=== PATIENT | male | born 1980 | race Caucasian/White ===

== ENCOUNTER 2019-04-30 20:48 | Emergency (ER) | payer OTHER ==
[2019-04-30 20:58] VITALS: RESP 16
--- NOTE | 2019-04-30 21:27 | ED ---
General Adult HPI - General Chief complaint: Neuro Symptoms/Deficit Stated complaint: Neuro issues Time Seen by Provider: 04/30/19 21:01 Source: patient Mode of arrival: ambulatory Limitations: no limitations - History of Present Illness Initial comments: Dictation was produced using [employer] dictation software. please excuse any grammatical, word or spelling errors. Chief Complaint: 38-year-old male past medical history of HIV/AIDS presents with bizarre behavior. History of Present Illness: As a 38-year-old male with past medical history of HIV/AIDS. Patient states he had his last CD4 count several months ago found to be 30. He has been noncompliant with his antiretroviral medications. Patient is also supposed to be on prophylactic antibiotics that he's not been on for the last several weeks. He doesn't have established care with infectious disease doctor in the area. He had established care in [place] however he moved closer to be with family. Patient states that over the last several years he's been casanova ving abnormal behavior. One example he had today which occurred 1 hour prior to arrival was he was scooping roasted potatoes and putting it back into the container instead of his plate. Patient has multiple episodes of these types of abnormal behavior at least once a week for the past several years. He reports today that he is sick and tired of having these symptoms prompted him to come to the emergency department today. Patient denies any pain complaints today. Patient feels like he is asymptomatic at this time. The ROS documented in this emergency department record has been reviewed and confirmed by me. Those systems with pertinent positive or negative responses have been documented in the HPI. All other systems are other negative and/or noncontributory. PHYSICAL EXAM: General Impression: Alert and oriented x3, not in acute distress HEENT: Normocephalic atraumatic, extra-ocular movements intact, pupils equal and reactive to light bilaterally, mucous membranes moist. Cardiovascular: Heart regular rate and rhythm, S1&S2 audible, no murmurs, rubs or gallops Chest: Lungs clear to auscultation bilaterally, no rhonchi, no wheeze, no rales Abdomen: Bowel sounds present, abdomen soft, non-tender, non-distended, no organomegaly Musculoskeletal: Pulses present and equal in all extremities, no peripheral edema Motor: no focal deficits noted Neurological: CN II-XII grossly intact, no focal motor or sensory deficits noted, NIH 0 Skin: Intact with no visualized rashes Psych: Normal affect and mood ED course: 38-year-old male presents with abnormal behavior. He is currently asymptomatic. Patient does not have a strokelike symptoms at bedside. His NIH is 0 and upon arrival are within acceptable limits. Given patient has history of HIV/AIDS with recent very low CD4 count several weeks ago there is concern that patient has been AIDS defining illness. Computed tomography scan of the brain was obtained showing no acute processes. Chest x-ray is unremarkable. Laboratory evaluation shows leukopenia 1.5 with macrocytosis. He does have normal cytopenia with white count 64. Coag panel metabolic panel is unremarkable. At this point it is unclear what is causing patient's abnormal behavior however he is currently asymptomatic at this time. Furthermore, his symptoms are chronic and occur frequently over the last several years. Patient does not have established care here in [place] after moving from [place] 1 week ago. I believe it's reasonable for patient be discharged to have outpatient workup given that there is no acute processes ongoing at this ti wy. She does not have any infectious symptoms to indicate CSF analysis. Discussed patient case with Dr. Brannon who recommends that patient be given Bactrim as daily prophylaxis. He does not recommend starting patient on any antiretroviral dictations at this time until he has further testing done. Patient is understandable agreeable to disposition. Patient is given referral to infectious disease. Given 1 dose of Bactrim here today. He is also given a starter pack for Bactrim to be taken daily as PCP prophylaxis. Return parameters discussed. Patient clear for discharge. - Related Data Home Medications Medication Instructions Recorded Confirmed Acetaminophen/Diphenhydramine 2 tab PO HS PRN 04/30/19 04/30/19 [Tylenol PM 500-25mg] Previous Rx's Medication Instructions Recorded Sulfamethox-Tmp 800-160Mg [Bactrim 1 tab PO DAILY 30 Days #30 tab 04/30/19 DS 800-160 mg] Allergies Allergy/AdvReac Type Severity Reaction Status Date / Time No Known Allergies Allergy Verified 04/30/19 21:15 Review of Systems ROS Statement: Those systems with pertinent positive or pertinent negative responses have been documented in the HPI. ROS Other: All systems not noted in ROS Statement are negative. Past Medical History Additional Past Medical History / Comment(s): aids, History of Any Multi-Drug Resistant Organisms: None Reported Additional Past Surgical History / Comment(s): colostomy and reversile Past Psychological History: No Psychological Hx Reported Smoking Status: Current every day smoker Past Alcohol Use History: Occasional Past Drug Use History: Cocaine, Marijuana General Exam Limitations: no limitations Course Vital Signs 04/30/19 20:53 Temperature 97.9 F Pulse Rate 64 Respiratory 16 Rate Blood Pressure 116/69 O2 Sat by Pulse 98 Oximetry Medical Decision Making - Lab Data Result diagrams: 04/30/19 21:25 04/30/19 21:25 Lab Results 04/30/19 04/30/19 04/30/19 Range/Units 21:25 21:25 21:25 WBC 1.5 L (3.8-10.6) k/uL RBC 3.90 L (4.30-5.90) m/uL Hgb 13.7 (13.0-17.5) gm/dL Hct 40.3 (39.0-53.0) % MCV 103.3 H (80.0-100.0) fL MCH 35.1 H (25.0-35.0) pg MCHC 33.9 (31.0-37.0) g/dL RDW 12.7 (11.5-15.5) % Plt Count 64 L (150-450) k/uL Neutrophils % 44 % Lymphocytes % 37 % Monocytes % 12 % Eosinophils % 1 % Basophils % 2 % Neutrophils # 0.7 L (1.3-7.7) k/uL Lymphocytes # 0.6 L (1.0-4.8) k/uL Monocytes # 0.2 (0-1.0) k/uL Eosinophils # 0.0 (0-0.7) k/uL Basophils # 0.0 (0-0.2) k/uL Manual Slide Review Performed Macrocytosis Slight PT 11.4 (9.0-12.0) sec INR 1.1 (<1.2) APTT 26.7 (22.0-30.0) sec Sodium 140 (137-145) mmol/L Potassium 4.6 (3.5-5.1) mmol/L Chloride 104 (98-107) mmol/L Carbon Dioxide 27 (22-30) mmol/L Anion Gap 9 mmol/L BUN 17 (9-20) mg/dL Creatinine 0.89 (0.66-1.25) mg/dL Est GFR (CKD-EPI)AfAm >90 (>60 ml/min/1.73 sqM) Est GFR (CKD-EPI)NonAf >90 (>60 ml/min/1.73 sqM) Glucose 105 H (74-99) mg/dL Calcium 8.9 (8.4-10.2) mg/dL Magnesium 1.9 (1.6-2.3) mg/dL Total Bilirubin 1.0 (0.2-1.3) mg/dL AST 174 H (17-59) U/L ALT 86 H (21-72) U/L Alkaline Phosphatase 86 (38-126) U/L Total Protein 7.6 (6.3-8.2) g/dL Albumin 3.7 (3.5-5.0) g/dL Disposition Clinical Impression: Bizarre behavior Disposition: HOME SELF-CARE Condition: Good Instructions (If sedation given, give patient instructions): AIDS (DC), HIV Infection (ED) Prescriptions: Sulfamethox-Tmp 800-160Mg [Bactrim DS 800-160 mg] 1 tab PO DAILY 30 Days #30 tab Is patient prescribed a controlled substance at d/c from ED?: No Referrals: Shahzad Brannon MD [STAFF PHYSICIAN] - 1-2 days Álvaro Wang MD [STAFF PHYSICIAN] - 1-2 days Time of Disposition: 23:21
--- NOTE | 2019-04-30 21:50 | CT ---
EXAMINATION TYPE: CT brain wo con DATE OF EXAM: 04/30/2019 COMPARISON: None. HISTORY: Altered mental status. TECHNIQUE: Axial CT images of the head without contrast. Bone windows and sagittal and coronal reform ats were reviewed. CT DLP: 1127.4 mGycm Automated exposure control for dose reduction was used. FINDINGS: No acute intracranial hemorrhage. Grimlado-white differentiation is maintained. No ventriculomegaly. Patent basal cisterns. No extra-axial fluid collections. No depressed or displaced calvarial fracture. Imaged paranasal sinuses and temporal bone structures a re well aerated. IMPRESSION: No acute intracranial process.
[2019-04-30 21:54] LABS: INR 1.1 (<1.2); Partial Thromboplastin Time 26.7 sec (22.0-30.0); Prothrombin Time 11.4 sec (9.0-12.0)
[2019-04-30 22:03] LABS: ALT 86 U/L (21-72); AST 174 U/L (17-59); African American GFR (CKD) >90 (>60 ml/min/1.73 sqM); Albumin 3.7 g/dL (3.5-5.0); Alkaline Phosphatase 86 U/L (38-126); Anion Gap 9 mmol/L; Blood Urea Nitrogen 17 mg/dL (9-20); Calcium 8.9 mg/dL (8.4-10.2); Carbon Dioxide 27 mmol/L (22-30); Chloride 104 mmol/L (98-107); Glucose 105 mg/dL (74-99); Magnesium 1.9 mg/dL (1.6-2.3); Potassium 4.6 mmol/L (3.5-5.1); Sodium 140 mmol/L (137-145); Total Protein 7.6 g/dL (6.3-8.2)
--- NOTE | 2019-04-30 22:04 | XR ---
EXAMINATION TYPE: XR chest 2V DATE OF EXAM: 04/30/2019 COMPARISON: NONE HISTORY: Blurred vision and nausea TECHNIQUE: Frontal and lateral views of the chest are obtained. FINDINGS: Heart and mediastinum are normal. Lungs are clear. Diaphragm is normal. There are chest le ads. Bony thorax appears normal. IMPRESSION: Normal chest
[2019-04-30 22:08] LABS: Basophils % (A) 2 %; Eosinophils % (A) 1 %; HCT 40.3 % (39.0-53.0); HGB 13.7 gm/dL (13.0-17.5); Lymphocytes # (A) 0.6 k/uL (1.0-4.8); Lymphocytes % (A) 37 %; MCH 35.1 pg (25.0-35.0); MCHC 33.9 g/dL (31.0-37.0); MCV 103.3 fL (80.0-100.0); Macrocytosis Slight; Mean Platelet Volume 8.8; Monocytes # (A) 0.2 k/uL (0-1.0); Monocytes % (A) 12 %; Neutrophils # (A) 0.7 k/uL (1.3-7.7); Neutrophils % (A) 44 %; RDW 12.7 % (11.5-15.5); WBC 1.5 k/uL (3.8-10.6)
[2019-04-30 22:32] LABS: Platelet Count 64 k/uL (150-450)
[2019-04-30] MEDS ORDERED: SULFAMETH-TMP DS STARTER PACK 2 TAB BTL PO STA (23:17)
[2019-04-30] MEDS ORDERED: SULFAMETHOX-TMP 800-160MG 1 EACH TAB PO STA (23:17)
[2019-04-30 23:55] VITALS: BP 118/78; PULSE 68; TEMP 98
== END 2019-04-30 23:54 | disposition home or self-care (01) ==
LOC: EC 20:48
DX: R46.89 Other symptoms and signs involving appearance and behavior (principal); D72.819 Decreased white blood cell count, unspecified; D75.89 Other specified diseases of blood and blood-forming organs; Z21 Asymptomatic human immunodeficiency virus [HIV] infection status
CPT/HCPCS: 36415; 70450; 71046; 80053; 83735; 85025; 85610; 85730; 99284

== ENCOUNTER 2019-05-06 17:07 | Emergency (ER) | payer OTHER ==
[2019-05-06] MEDS ORDERED: OXYMETAZOLINE 0.05% NASL SPRAY 1 SPRAY BOTTLE NASAL STA (18:03)
--- NOTE | 2019-05-06 18:19 | ED ---
ENT HPI - General Source: patient, EMS Mode of arrival: EMS Limitations: no limitations <Isabella Grewal - Last Filed: 05/06/19 23:54> <Bryan Alonzo - Last Filed: 05/17/19 09:44> - General Chief complaint: ENT Stated complaint: Nosebleed Time Seen by Provider: 05/06/19 17:54 - History of Present Illness Initial comments: 38-year-old male with history of AIDS with CD4 < 30 off antiviral medications, HTN currently non compliant with his lisinopril recent right sided facial fracture > 6 week prior after fall presenting to the ER for cc of right nare nose bleed x 4 days, no history of trauma. Patient states that he has had a nosebleed on and off for the past 4 days. Patient states it occurred while bending over looking in the fridge for food approximate 4 days ago. Patient states is been on and off. Patient states this current episode of bleeding of the right knee are has been ongoing for approximately 3-4 hours. Patient states he has attempted to hold pressure but this was no working so he called EMS for transportation to hospital for evaluation. Upon arrival patient BP elevated. Remaining VS stable. Denies other complaints. (Isabella Grewal) - Related Data Home Medications Medication Instructions Recorded Confirmed Acetaminophen/Diphenhydramine 2 tab PO HS PRN 04/30/19 04/30/19 [Tylenol PM 500-25mg] Previous Rx's Medication Instructions Recorded Sulfamethox-Tmp 800-160Mg [Bactrim 1 tab PO DAILY 30 Days #30 tab 04/30/19 DS 800-160 mg] Oxymetazoline 0.05% Nasl [place] 2 spray EA NOSTRIL BID PRN 7 Days 05/06/19 [Afrin 0.05% Nasal [place]] #1 bottle Allergies Allergy/AdvReac Type Severity Reaction Status Date / Time No Known Allergies Allergy Verified 04/30/19 21:15 Review of Systems ROS Other: All systems not noted in ROS Statement are negative. <Isabella Grewal - Last Filed: 05/06/19 23:54> ROS Other: All systems not noted in ROS Statement are negative. <Bryan Alonzo - Last Filed: 05/17/19 09:44> ROS Statement: Those systems with pertinent positive or pertinent negative responses have been documented in the HPI. Past Medical History Additional Past Medical History / Comment(s): aids, History of Any Multi-Drug Resistant Organisms: None Reported Additional Past Surgical History / Comment(s): colostomy and reversile Past Psychological History: No Psychological Hx Reported Smoking Status: Current every day smoker Past Alcohol Use History: Occasional Past Drug Use History: Cocaine, Marijuana <Isabella Grewal - Last Filed: 05/06/19 23:54> General Exam Limitations: no limitations <Isabella Grewal - Last Filed: 05/06/19 23:54> - General Exam Comments Initial Comments: General: The patient is awake and alert, in no distress, and does not appear acutely ill. Eye: +3 mm pupils are equal, round and reactive to light, extra-ocular movements are intact. No nystagmus. There is normal conjunctiva bilaterally. No signs of icterus. Ears, nose, mouth and throat: There are moist mucous membranes and no oral lesions. Bleeding from right nare-mild. There is blood in the oropharynx. Neck: The neck is supple, there is no tenderness or JVD. Cardiovascular: There is a regular rate and rhythm. No murmur, rub or gallop is appreciated. Respiratory: Lungs are clear to auscultation, respirations are non-labored, breath sounds are equal. No wheezes, stridor, rales, or rhonchi. Gastrointestinal: Soft, non-distended, non-tender abdomen without masses or organomegaly noted. There is no rebound or guarding present. No CVA tenderness. Bowel sounds are unremarkable.] Musculoskeletal: Normal ROM, no tenderness. Strength 5/5. Sensation intact. Radial pulses equal bilaterally 2+. Neurological: A&O x 3. CN II-XII intact, There are no obvious motor or sensory deficits. Coordination appears grossly intact. Speech is normal. Skin: Skin is warm and dry and no rashes or lesions are noted. Psychiatric: Cooperative, appropriate mood & affect, normal judgment. (Isabella Grewal) Course Vital Signs 05/06/19 05/06/19 05/06/19 17:11 20:00 22:18 Temperature 98.0 F 98.5 F Pulse Rate 76 67 70 Respiratory 18 16 15 Rate Blood Pressure 144/105 143/105 133/98 O2 Sat by Pulse 97 98 98 Oximetry 05/06/19 05/07/19 23:25 00:22 Temperature 97.7 F Pulse Rate 73 75 Respiratory 14 18 Rate Blood Pressure 125/89 133/85 O2 Sat by Pulse 97 98 Oximetry Medical Decision Making - Lab Data Result diagrams: 05/06/19 18:15 05/06/19 18:15 <Isabella Grewal - Last Filed: 05/06/19 23:54> - Lab Data Result diagrams: 05/06/19 18:15 05/06/19 18:15 <Bryan Alonzo - Last Filed: 05/17/19 09:44> - Medical Decision Making 38-year-old male presented emergency department for chief complaint of nosebleeds 4 days. Patient's nosebleed controlled with direct pressure in the ER. There is no evidence of bleeding in the posterior oropharynx after cessation. Patient's hemoglobin 12.7 stable. 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 Noncompliant with medications. Patient has no focal neurological deficits. Patient's family concern of previous visit on the with TIA symptoms they feel that patient given his past medical history and comorbidities is at risk for a stroke. Patient is found to be hypertensive with headache today during visit (not initial complaint) CT without contrast negative. Patient has no focal neurological complaints today. Family requesting transfer as there is no neurology available in house today. At this time after discussing case with him provider patient will be transferred for neurological evaluation at [facility]. Dr. Ma accepted the transfer via personal vehicle. Patient was given once dose of hydralazine in the ER. Patient discharged appearing well. Address provided and family states they will drive patient directly to the ER. (Isabella Grewal) I saw this patient in conjunction with the physician accountant assistant. I performed independent history and physical exam. Agree with case management. (Bryan Alonzo) - Lab Data Lab Results 05/06/19 05/06/19 05/06/19 Range/Units 18:15 18:15 18:15 WBC 2.2 L (3.8-10.6) k/uL RBC 3.61 L (4.30-5.90) m/uL Hgb 12.7 L (13.0-17.5) gm/dL Hct 36.8 L (39.0-53.0) % MCV 101.9 H (80.0-100.0) fL MCH 35.0 (25.0-35.0) pg MCHC 34.4 (31.0-37.0) g/dL RDW 12.7 (11.5-15.5) % Plt Count 45 L (150-450) k/uL Neutrophils % (Manual) 53 % Lymphocytes % (Manual) 18 % Monocytes % (Manual) 28 % Eosinophils % (Manual) 1 % Neutrophils # (Manual) 1.17 L (1.3-7.7) k/uL Lymphocytes # (Manual) 0.40 L (1.0-4.8) k/uL Monocytes # (Manual) 0.62 (0-1.0) k/uL Eosinophils # (Manual) 0.02 (0-0.7) k/uL Nucleated RBCs 0 (0-0) /100 WBC Manual Slide Review Performed RBC Morphology Normal PT 10.9 (9.0-12.0) sec INR 1.0 (<1.2) APTT 26.3 (22.0-30.0) sec Sodium 139 (137-145) mmol/L Potassium 4.6 (3.5-5.1) mmol/L Chloride 105 (98-107) mmol/L Carbon Dioxide 24 (22-30) mmol/L Anion Gap 10 mmol/L BUN 19 (9-20) mg/dL Creatinine 0.83 (0.66-1.25) mg/dL Est GFR (CKD-EPI)AfAm >90 (>60 ml/min/1.73 sqM) Est GFR (CKD-EPI)NonAf >90 (>60 ml/min/1.73 sqM) Glucose 98 (74-99) mg/dL Calcium 8.8 (8.4-10.2) mg/dL Total Bilirubin 0.9 (0.2-1.3) mg/dL AST 121 H (17-59) U/L ALT 84 H (21-72) U/L Alkaline Phosphatase 77 (38-126) U/L Total Protein 7.5 (6.3-8.2) g/dL Albumin 3.8 (3.5-5.0) g/dL Disposition Is patient prescribed a controlled substance at d/c from ED?: No Time of Disposition: 22:27 - Out of Hospital Transfer - Req. Specs Out of Hospital Transfer - Requested Specifics: Other Emergency Center ([facility] Rey) <Isabella Grewal - Last Filed: 05/06/19 23:54> <Bryan Alonzo - Last Filed: 05/17/19 09:44> Clinical Impression: Elevated blood pressure reading, Anterior epistaxis, Recurrent epistaxis, Chronic leukopenia, Thrombocytopenia associated with AIDS Disposition: OTHER INSTITUTION NOT DEFINED Condition: Stable Additional Instructions: Please go directly to the emergency department as discussed, [facility]. If patient develops new symptoms or other new concerns please don't bear out to the nearest emergency department. Prescriptions: Oxymetazoline 0.05% Nasl [place] [Afrin 0.05% Nasal [place]] 2 spray EA NOSTRIL BID PRN 7 Days #1 bottle PRN Reason: Bleeding Referrals: None,Stated [Primary Care Provider] - 1-2 days Shahzad Brannon MD [STAFF PHYSICIAN] - 1-2 days Srinivas Denise MD [STAFF PHYSICIAN] - 1-2 days
[2019-05-06 18:33] LABS: HCT 36.8 % (39.0-53.0); HGB 12.7 gm/dL (13.0-17.5); MCHC 34.4 g/dL (31.0-37.0); MCV 101.9 fL (80.0-100.0); Mean Platelet Volume 11.1; RBC 3.61 m/uL (4.30-5.90); RDW 12.7 % (11.5-15.5); WBC 2.2 k/uL (3.8-10.6)
[2019-05-06 18:36] LABS: Platelet Count 45 k/uL (150-450)
[2019-05-06 18:38] LABS: ALT 84 U/L (21-72); AST 121 U/L (17-59); African American GFR (CKD) >90 (>60 ml/min/1.73 sqM); Albumin 3.8 g/dL (3.5-5.0); Alkaline Phosphatase 77 U/L (38-126); Anion Gap 10 mmol/L; Blood Urea Nitrogen 19 mg/dL (9-20); Calcium 8.8 mg/dL (8.4-10.2); Carbon Dioxide 24 mmol/L (22-30); Chloride 105 mmol/L (98-107); Glucose 98 mg/dL (74-99); Non-African American GFR(CKD) >90 (>60 ml/min/1.73 sqM); Potassium 4.6 mmol/L (3.5-5.1); Sodium 139 mmol/L (137-145); Total Bilirubin 0.9 mg/dL (0.2-1.3); Total Protein 7.5 g/dL (6.3-8.2)
[2019-05-06 18:52] LABS: Partial Thromboplastin Time 26.3 sec (22.0-30.0); Prothrombin Time 10.9 sec (9.0-12.0)
[2019-05-06 19:13] LABS: Eosinophils # (M) 0.02 k/uL (0-0.7); Monocytes # (M) 0.62 k/uL (0-1.0); Neutrophils # (M) 1.17 k/uL (1.3-7.7); Neutrophils % (M) 53 %; Nucleated Red Blood Cells 0 /100 WBC (0-0); Total Cells Counted 100
[2019-05-06] MEDS ORDERED: BENZOCAINE SPRAY 1 CAN MUCOUS MEM STA (20:00)
--- NOTE | 2019-05-06 21:38 | CT ---
EXAMINATION TYPE: CT brain wo con DATE OF EXAM: 05/06/2019 COMPARISON: 04/30/2019 HISTORY: headache and bleeding from nose X [address] DLP: 1151.4 mGycm. Automated Exposure Control for Dose Reduction was Utilized. TECHNIQUE: CT scan of the head is performed without contrast. FINDINGS: Ventricles have normal size. There is no mass effect nor midline shift. There is no sign of intracranial hemorrhage. Calvarium is intact. IMPRESSION: Mild atrophy. No acute intracranial abnormality. No change.
[2019-05-06] MEDS ORDERED: MORPHINE SULFATE 4 MG/ML SYRINGE IVP STA (21:39)
[2019-05-06] MEDS ORDERED: hydrALAZINE HCL 20 MG/ML 1 ML VIAL IVP STA (22:04)
[2019-05-07 00:24] VITALS: BP 133/85; PULSE 75; RESP 18; TEMP 97.7
== END 2019-05-07 00:15 | disposition other institution (70) ==
LOC: EC 17:07
DX: R04.0 Epistaxis (principal); D72.819 Decreased white blood cell count, unspecified; B20 Human immunodeficiency virus [HIV] disease; R03.0 Elevated blood-pressure reading, without diagnosis of hypertension; R51 Headache; Z91.14 Patient's other noncompliance with medication regimen; F17.200 Nicotine dependence, unspecified, uncomplicated
CPT/HCPCS: 36415; 80053; 85025; 85610; 85730; 70450; 99285; 96374; 96375; J2270; J0360

== ENCOUNTER → 2020-04-05 | Outpatient (CLI) | payer OTHER ==
[2020-04-05 14:41] LABS: Basophils % (A) 0 %; Eosinophils # (A) 0.1 k/uL (0-0.7); Eosinophils % (A) 2 %; HCT 48.6 % (39.0-53.0); HGB 16.1 gm/dL (13.0-17.5); Lymphocytes # (A) 1.1 k/uL (1.0-4.8); Lymphocytes % (A) 28 %; MCH 32.4 pg (25.0-35.0); MCHC 33.2 g/dL (31.0-37.0); MCV 97.6 fL (80.0-100.0); Mean Platelet Volume 8.6; Monocytes # (A) 0.4 k/uL (0-1.0); Monocytes % (A) 9 %; Neutrophils # (A) 2.3 k/uL (1.3-7.7); Neutrophils % (A) 57 %; Platelet Count 130 k/uL (150-450); RBC 4.98 m/uL (4.30-5.90); RDW 12.1 % (11.5-15.5)
[2020-04-05 20:36] LABS: African American GFR (CKD) 96.1 (60.0-200.0); Anion Gap 3.7 mmol/L (4.00-12.00); BUN/Creat Ratio 15.45 Ratio (12.00-20.00); Calcium 9.3 mg/dL (8.7-10.3); Carbon Dioxide 28.3 mmol/L (21.6-31.8); Non-African American GFR(CKD) 82.9 (60.0-200.0); Potassium 4.2 mmol/L (3.5-5.5)
[2020-04-06 12:48] LABS: T4/T8 Ratio (CD4:CD8) 0.2 (1.0-3.7)
[2020-04-06 16:39] LABS: HIV-1 RNA DETECTED (Not detected)
== END | disposition home or self-care (01) ==
LOC: LABWHC1 14:04
PROVIDERS: ATTEND Internal Medicine Infectious Disease
DX: B20 Human immunodeficiency virus [HIV] disease (principal)
CPT/HCPCS: 36415; 80048; 85025; 86360; 87536

== ENCOUNTER 2020-04-08 13:07 | Emergency (ER) | payer OTHER ==
[2020-04-08 13:13] VITALS: RESP 18; TEMP 98.1
[2020-04-08 13:52] VITALS: BP 171/112; PULSE 45
[2020-04-08] MEDS ORDERED: lisinopriL 10 MG TAB PO STA (13:56)
--- NOTE | 2020-04-08 14:05 | ED ---
General Adult HPI - General Chief complaint: ENT Stated complaint: nose bleed Time Seen by Provider: 04/08/20 13:30 Source: patient, family, RN notes reviewed Mode of arrival: ambulatory Limitations: no limitations - History of Present Illness Initial comments: Patient is a pleasant 39-year-old male presenting to the emergency department with complaints of bleeding. Patient states bleeding is coming from deep inside somewhere, rarely comes to nose. Patient states he does swallow frequently. Patient states sometimes he spits out clots of blood. Patient questions if this could be coming from his sinuses. Patient does complain of sinus congestion. Patient is on possibly Keflex for recent stye. - Related Data Home Medications Medication Instructions Recorded Confirmed Acetaminophen/Diphenhydramine 2 tab PO HS PRN 04/30/19 04/30/19 [Tylenol PM 500-25mg] Previous Rx's Medication Instructions Recorded Sulfamethox-Tmp 800-160Mg [Bactrim 1 tab PO DAILY 30 Days #30 tab 04/30/19 DS 800-160 mg] Oxymetazoline 0.05% Nasl [place] 2 spray EA NOSTRIL BID PRN 7 Days 05/06/19 [Afrin 0.05% Nasal [place]] #1 bottle Amoxic-Pot Clav 875-125Mg 1 tab PO BID #20 tab 04/08/20 [Augmentin 875-125] Fluticasone Nasal [place] [Flonase 1 spray EA NOSTRIL DAILY #1 bottle 04/08/20 Nasal [place]] Allergies Allergy/AdvReac Type Severity Reaction Status Date / Time No Known Allergies Allergy Verified 04/08/20 13:12 Review of Systems ROS Statement: Those systems with pertinent positive or pertinent negative responses have been documented in the HPI. ROS Other: All systems not noted in ROS Statement are negative. Constitutional: Denies: fever Eyes: Denies: eye pain ENT: Reports: as per HPI Respiratory: Denies: cough Cardiovascular: Denies: chest pain Endocrine: Denies: fatigue Gastrointestinal: Denies: abdominal pain Genitourinary: Denies: dysuria Musculoskeletal: Denies: back pain Skin: Denies: rash Neurological: Denies: weakness Past Medical History Past Medical History: Hypertension Additional Past Medical History / Comment(s): HIV History of Any Multi-Drug Resistant Organisms: None Reported Additional Past Surgical History / Comment(s): colostomy and reversile, Past Psychological History: Anxiety Smoking Status: Former smoker Past Alcohol Use History: Occasional Past Drug Use History: Cocaine, Marijuana General Exam Limitations: no limitations General appearance: alert, in no apparent distress Head exam: Present: normocephalic Eye exam: Present: normal appearance, PERRL, EOMI ENT exam: Present: normal oropharynx, other (Nasal cavity without any active or dried blood.) Expanded Mouth exam: Present: normal external inspection Throat exam: normal inspection Neck exam: Present: normal inspection Respiratory exam: Present: normal lung sounds bilaterally Cardiovascular Exam: Present: bradycardia GI/Abdominal exam: Present: soft. Absent: tenderness Extremities exam: Present: normal inspection Neurological exam: Present: alert, CN II-XII intact Psychiatric exam: Present: normal affect, normal mood Skin exam: Present: normal color Course Vital Signs 04/08/20 04/08/20 13:08 13:44 Temperature 98.1 F Pulse Rate 43 L 45 L Respiratory 18 18 Rate Blood Pressure 181/103 171/112 O2 Sat by Pulse 99 98 Oximetry Medical Decision Making - Medical Decision Making Patient states he does on lisinopril 5 mg. Patient is not familiar with his blood pressure normally runs. Patient will be provided neck should dose. Patient does not have a primary care physician and is advised of need to follow- up with primary care physician. Patient also advised of need to follow-up with ENT physician. Numbers will be provided. Patient will be provided additional dose of lisinopril here. Patient is advised that possible scope to evaluate si nuses and posterior nasal cavity. Disposition Clinical Impression: Sinusitis, Hypertension Disposition: HOME SELF-CARE Condition: Stable Instructions (If sedation given, give patient instructions): Sinusitis (ED), Hypertension (ED) Additional Instructions: Please follow-up with primary care physician and ENT physician this week. Return for increased bleeding, weakness or shortness of breath or lightheadedness, worsening or change in symptoms or other concerns. New antibiotic will be provided, discontinue all antibiotic. Please follow-up also with blood pressure, you may need change with medications for this. Prescriptions were sent to [facility]'s pharmacy. Prescriptions: Amoxic-Pot Clav 875-125Mg [Augmentin 875-125] 1 tab PO BID #20 tab Fluticasone Nasal [place] [Flonase Nasal [place]] 1 spray EA NOSTRIL DAILY #1 bottle Is patient prescribed a controlled substance at d/c from ED?: No Referrals: Srinivas Denise MD [STAFF PHYSICIAN] - 1-2 days Chang Amor MD [REFERRING] - 1-2 days Javed Hung MD [STAFF PHYSICIAN] - 1-2 days Time of Disposition: 14:03
== END 2020-04-08 14:16 | disposition home or self-care (01) ==
LOC: EC 13:07
DX: J32.9 Chronic sinusitis, unspecified (principal); R04.0 Epistaxis; I10 Essential (primary) hypertension; R00.1 Bradycardia, unspecified; Z87.891 Personal history of nicotine dependence
CPT/HCPCS: 99283

== ENCOUNTER 2020-05-28 03:20 | Observation (INO) | payer OTHER ==
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
[2020-05-28 04:34] LABS: HCT 50.7 % (39.0-53.0); HGB 17.6 gm/dL (13.0-17.5); MCH 34.3 pg (25.0-35.0); MCHC 34.8 g/dL (31.0-37.0); MCV 98.7 fL (80.0-100.0); Platelet Count 151 k/uL (150-450); RBC 5.13 m/uL (4.30-5.90); RDW 12.9 % (11.5-15.5); WBC 4.7 k/uL (3.8-10.6)
[2020-05-28 04:43] LABS: Amphetamine Screen,Urine Not Detected (NotDetected); Barbiturate Screen,Urine Not Detected (NotDetected); Benzodiazepines Screen,Urine Not Detected (NotDetected); Cocaine Screen,Urine Not Detected (NotDetected); Methadone Screen, Urine Not Detected (NotDetected); Opiate Screen,Urine Not Detected (NotDetected); Oxycodone Screen, Urine Not Detected (NotDetected); Phencyclidine Screen,Urine Not Detected (NotDetected); Tricyclic Antidepressant,Urine Not Detected (NotDetected); Urn Cannabinoid Scrn Detected (NotDetected)
[2020-05-28 04:52] LABS: ALT 25 U/L (4-49); AST 38 U/L (17-59); Acetaminophen <10.0 ug/mL; African American GFR (CKD) >90 (>60 ml/min/1.73 sqM); Albumin 4.6 g/dL (3.5-5.0); Alkaline Phosphatase 85 U/L (38-126); Anion Gap 10 mmol/L; Blood Urea Nitrogen 15 mg/dL (9-20); Calcium 8.9 mg/dL (8.4-10.2); Carbon Dioxide 28 mmol/L (22-30); Chloride 112 mmol/L (98-107); Glucose 99 mg/dL (74-99); Non-African American GFR(CKD) >90 (>60 ml/min/1.73 sqM); Salicylate <1.0 mg/dL; Sodium 150 mmol/L (137-145); Total Bilirubin 0.4 mg/dL (0.2-1.3)
[2020-05-28 05:21] LABS: Potassium 3.9 mmol/L (3.5-5.1)
[2020-05-28 05:27] LABS: Alcohol 338 mg/dL
[2020-05-28 05:32] LABS: Basophils # (M) 0.05 k/uL (0-0.2); Eosinophils # (M) 0.09 k/uL (0-0.7); Lymphocytes # (M) 1.83 k/uL (1.0-4.8); Monocytes # (M) 0.33 k/uL (0-1.0); Neutrophils % (M) 51 %; Nucleated Red Blood Cells 0 /100 WBC (0-0); Total Cells Counted 100
[2020-05-28] MEDS ORDERED: ALPRAZolam 0.25 MG TAB PO PRN (05:39)
[2020-05-28] MEDS ORDERED: NALOXONE 0.4 MG/ML 1 ML VIAL IV PRN (05:39)
[2020-05-28] MEDS ORDERED: ONDANSETRON 4 MG/2 ML VIAL IVP PRN (05:39)
[2020-05-28 07:04] VITALS: TEMP 97.3
[2020-05-28] MEDS ORDERED: SODIUM CHLORIDE 0.45% 1,000 ML IV SCH (11:00)
--- NOTE | 2020-05-28 15:02 | P.HPIM ---
History of Present Illness 39-year-old male came in for second evaluation was admitted to my service because of all call intoxication. Although patient is a sober enough to go to psychiatric floor now. Patient today doesn't drink alcohol on regular bas is the patient was at a [employer] yesterday and did drink out of control. Apparently patient did complain of some suicidal ideation to the ER staff yesterday because of which psychiatry was consulted. Patient denied any suicidal ideation to me patient was unsure whether he did say he wants to commit suicide yesterday as he was too drunk. Although he admits to depression. Patient does have history of HIV at The CD4 count available although patient is on Bactrim and antiretroviral therapy. Patient does use marijuana occasionally came in with alcohol levels of around 300 Review of Systems REVIEW OF SYSTEMS: CONSTITUTIONAL: No fever, no malaise, no fatigue. HEENT: No recent visual problems or hearing problems. Denied any sore throat. CARDIOVASCULAR: No chest pain, orthopnea, PND, no palpitations, no syncope. PULMONARY: No shortness of breath, no cough, no hemoptysis. GASTROINTESTINAL: No diarrhea, no nausea, no vomiting, no abdominal pain. NEUROLOGICAL: No headaches, no weakness, no numbness. HEMATOLOGICAL: Denies any bleeding or petechiae. GENITOURINARY: Denies any burning micturition, frequency, or urgency. MUSCULOSKELETAL/RHEUMATOLOGICAL: Denies any joint pain, swelling, or any muscle pain. ENDOCRINE: Denies any polyuria or polydipsia. The rest of the 14-point review of systems is negative. Past Medical History Past Medical History: Hypertension Additional Past Medical History / Comment(s): HIV History of Any Multi-Drug Resistant Organisms: None Reported Additional Past Surgical History / Comment(s): colostomy and reversal-pt did not want to discuss details. Past Anesthesia/Blood Transfusion Reactions: No Reported Reaction Smoking Status: Current every day smoker - Past Family History Father Family Medical History: Cancer Additional Family Medical History / Comment(s): Father of stomach cancer. Mother Family Medical History: No Reported History Additional Family Medical History / Comment(s): Mother is healthy Medications and Allergies Home Medications Medication Instructions Recorded Confirmed Type Bictegrav/Emtricit/Tenofov Ala 1 tab PO HS 05/28/20 05/28/20 History [Biktarvy 50-200-25 mg Tablet] Sulfamethox-Tmp 800-160Mg [Bactrim 1 tab PO HS 05/28/20 05/28/20 History DS 800-160 mg] Allergies Allergy/AdvReac Type Severity Reaction Status Date / Time No Known Allergies Allergy Verified 05/28/20 13:44 Physical Exam Vitals: Vital Signs Temp Pulse Resp BP Pulse Ox 05/28/20 13:00 16 05/28/20 12:00 16 05/28/20 07:02 97.3 F L 70 16 127/77 96 05/28/20 03:35 98.0 F 95 18 161/118 99 Intake and Output 05/27/20 05/28/20 05/28/20 22:59 06:59 14:59 Other: Weight 79.379 kg 79.379 kg PHYSICAL EXAMINATION: GENERAL: The patient is drowsy and oriented x3, not in any acute distress. Well developed, well nourished. HEENT: Pupils are round and equally reacting to light. EOMI. No scleral icterus. No conjunctival pallor. Normocephalic, atraumatic. No pharyngeal erythema. No thyromegaly. CARDIOVASCULAR: S1 and S2 present. No murmurs, rubs, or gallops. PULMONARY: Chest is clear to auscultation, no wheezing or crackles. ABDOMEN: Soft, nontender, nondistended, normoactive bowel sounds. No palpable organomegaly. MUSCULOSKELETAL: No joint swelling or deformity. EXTREMITIES: No cyanosis, clubbing, or pedal edema. NEUROLOGICAL: Gross neurological examination did not reveal any focal deficits. SKIN: No rashes. Results CBC & Chem 7: 05/28/20 04:17 05/28/20 04:17 Labs: Abnormal Lab Results - Last 24 Hours (Table) 05/28/20 05/28/20 05/28/20 Range/Units 04:17 04:17 04:17 Hgb 17.6 H (13.0-17.5) gm/dL Sodium 150 H (137-145) mmol/L Chloride 112 H (98-107) mmol/L U Marijuana (THC) Screen Detected H (NotDetected) Serum Alcohol 338 H* mg/dL Thrombosis Risk Factor Assmnt - Choose All That Apply Any of the Below Risk Factors Present?: Yes Each Factor Represents 1 point: Age 41-60 years Other Risk Factors: No Other congenital or acquired thrombophilia - If yes, enter type in comment: No Thrombosis Risk Factor Assessment Total Risk Factor Score: 1 Thrombosis Risk Factor Assessment Level: Low Risk Assessment and Plan Plan: -Alcohol intoxication: Patient will be started on half-normal saline because of hyponatremia. Patient will be evaluated by psychiatry depending on their assessment patient will be the discharge home or to psychiatric floor. -HIV: CD4 count is unknown patient will follow-up with his ID physician. Jazzy winter will be continued on his antiretroviral medication and Bactrim -Marijuana use and nicotine use: Counseling was provided -Depression: Evaluation by psychiatry Patient will be discharged from medical perspective
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
[2020-05-28] MEDS ORDERED: IBUPROFEN 600 MG TAB PO STA (16:36)
--- NOTE | 2020-05-28 21:25 | ED ---
Medical Decision Making - Medical Decision Making The patient was evaluated by the EPS service at this time is on aerosol himself or anyone else he will be discharged with outpatient follow-up - Lab Data Result diagrams: 05/28/20 04:17 05/28/20 04:17 Lab Results 05/28/20 05/28/20 05/28/20 Range/Units 04:17 04:17 04:17 WBC 4.7 (3.8-10.6) k/uL RBC 5.13 (4.30-5.90) m/uL Hgb 17.6 H (13.0-17.5) gm/dL Hct 50.7 (39.0-53.0) % MCV 98.7 (80.0-100.0) fL MCH 34.3 (25.0-35.0) pg MCHC 34.8 (31.0-37.0) g/dL RDW 12.9 (11.5-15.5) % Plt Count 151 (150-450) k/uL Neutrophils % (Manual) 51 % Lymphocytes % (Manual) 39 % Monocytes % (Manual) 7 % Eosinophils % (Manual) 2 % Basophils % (Manual) 1 % Neutrophils # (Manual) 2.40 (1.3-7.7) k/uL Lymphocytes # (Manual) 1.83 (1.0-4.8) k/uL Monocytes # (Manual) 0.33 (0-1.0) k/uL Eosinophils # (Manual) 0.09 (0-0.7) k/uL Basophils # (Manual) 0.05 (0-0.2) k/uL Nucleated RBCs 0 (0-0) /100 WBC Manual Slide Review Performed Sodium 150 H (137-145) mmol/L Potassium 3.9 (3.5-5.1) mmol/L Chloride 112 H (98-107) mmol/L Carbon Dioxide 28 (22-30) mmol/L Anion Gap 10 mmol/L BUN 15 (9-20) mg/dL Creatinine 0.99 (0.66-1.25) mg/dL Est GFR (CKD-EPI)AfAm >90 (>60 ml/min/1.73 sqM) Est GFR (CKD-EPI)NonAf >90 (>60 ml/min/1.73 sqM) Glucose 99 (74-99) mg/dL Calcium 8.9 (8.4-10.2) mg/dL Total Bilirubin 0.4 (0.2-1.3) mg/dL AST 38 (17-59) U/L ALT 25 (4-49) U/L Alkaline Phosphatase 85 (38-126) U/L Total Protein 8.0 (6.3-8.2) g/dL Albumin 4.6 (3.5-5.0) g/dL Salicylates <1.0 mg/dL Urine Opiates Screen Not Detected (NotDetected) Ur Oxycodone Screen Not Detected (NotDetected) Urine Methadone Screen Not Detected (NotDetected) Ur Propoxyphene Screen Not Detected (NotDetected) Acetaminophen <10.0 ug/mL Ur Barbiturates Screen Not Detected (NotDetected) U Tricyclic Antidepress Not Detected (NotDetected) Ur Phencyclidine Scrn Not Detected (NotDetected) Ur Amphetamines Screen Not Detected (NotDetected) U Methamphetamines Scrn Not Detected (NotDetected) U Benzodiazepines Scrn Not Detected (NotDetected) Urine Cocaine Screen Not Detected (NotDetected) U Marijuana (THC) Screen Detected H (NotDetected) Serum Alcohol 338 H* mg/dL Disposition Clinical Impression: Alcohol intoxication, Suicidal behavior, HIV (human immunodeficiency virus infection), Adjustment reaction of adult life Disposition: ADMITTED IP TO THIS HOSP Condition: Good Is patient prescribed a controlled substance at d/c from ED?: No
[2020-05-28 21:35] VITALS: BP 196/94; PULSE 50; RESP 18
== END 2020-05-28 21:39 | disposition home or self-care (01) ==
LOC: EC 03:20 → 6NMEDSUR 05:41
PROVIDERS: ADMIT Internal Medicine; ATTEND Internal Medicine
DX: F10.129 Alcohol abuse with intoxication, unspecified (principal); E87.0 Hyperosmolality and hypernatremia; F32.9 Major depressive disorder, single episode, unspecified; F43.20 Adjustment disorder, unspecified; F41.9 Anxiety disorder, unspecified; I10 Essential (primary) hypertension; Z21 Asymptomatic human immunodeficiency virus [HIV] infection status; R45.851 Suicidal ideations; F12.90 Cannabis use, unspecified, uncomplicated; F17.200 Nicotine dependence, unspecified, uncomplicated; Z79.899 Other long term (current) drug therapy; Z91.410 Personal history of adult physical and sexual abuse; Z80.0 Family history of malignant neoplasm of digestive organs
CPT/HCPCS: 82075; 96360; 96361; 99284; 36415; 80053; 85025; 80306; 83520; G0378; G0480 ×2; 80320; 80329

== ENCOUNTER 2023-09-24 21:52 | Inpatient (IN) | payer OTHER ==
--- NOTE | 2023-09-24 22:17 | ED ---
GI Bleed HPI - General Chief complaint: GI Bleed Stated complaint: Possible seizure Time Seen by Provider: 09/24/23 22:11 Source: patient Mode of arrival: ambulatory Limitations: no limitations - History of Present Illness Initial comments: Kaleb is a 43yo M with history of alcohol abuse who presents to the ER today via private vehicle for evaluation of possible alcohol withdrawal as well as hematemesis. Patient reports that for the past month he has been going to the bar daily and having 12-16 cocktails every day, today he decided to stop drinking. He has been nauseated and tremulous throughout the day. Patient states that he has been trying to drink water even though he just keeps vomiting it back up however the last couple times he vomited he noted that there seem to be some blood streaking. Patient states he has been through alcohol withdrawal in the past he has had tremors but never this severe. He states he has never vomited blood in the past. He has never been hospitalized for alcohol related issues. - Related Data Home Medications Medication Instructions Recorded Confirmed Bictegrav/Emtricit/Tenofov Ala 1 tab PO HS 05/28/20 05/28/20 [Biktarvy 50-200-25 mg Tablet] Sulfamethox-Tmp 800-160Mg [Bactrim 1 tab PO HS 05/28/20 05/28/20 DS 800-160 mg] Allergies Allergy/AdvReac Type Severity Reaction Status Date / Time No Known Allergies Allergy Verified 09/24/23 21:59 Review of Systems ROS Statement: Those systems with pertinent positive or pertinent negative responses have been documented in the HPI. ROS Other: All systems not noted in ROS Statement are negative. Past Medical History Past Medical History: Hypertension Additional Past Medical History / Comment(s): HIV History of Any Multi-Drug Resistant Organisms: None Reported Additional Past Surgical History / Comment(s): colostomy and reversal-pt did not want to discuss details. Past Anesthesia/Blood Transfusion Reactions: No Reported Reaction Past Psychological History: Anxiety, Depression Smoking Status: Current every day smoker Past Alcohol Use History: Abuse Past Drug Use History: Marijuana - Past Family History Father Family Medical History: Cancer Additional Family Medical History / Comment(s): Father of stomach cancer. Mother Family Medical History: No Reported History Additional Family Medical History / Comment(s): Mother is healthy General Exam Limitations: no limitations General appearance: anxious Head exam: Present: atraumatic, normocephalic Eye exam: Present: PERRL Respiratory exam: Absent: respiratory distress Cardiovascular Exam: Present: regular rate GI/Abdominal exam: Present: soft. Absent: distended, guarding, rebound, rigid Rectal exam: Present: deferred Extremities exam: Present: normal inspection Psychiatric exam: Present: anxious Skin exam: Present: warm, dry Course Vital Signs 09/24/23 09/24/23 09/25/23 21:55 23:38 00:00 Temperature 98.1 F Pulse Rate 86 64 64 Respiratory 18 18 18 Rate Blood Pressure 199/119 173/106 171/114 O2 Sat by Pulse 98 98 98 Oximetry 09/25/23 09/25/23 01:00 02:00 Temperature Pulse Rate 65 66 Respiratory 18 18 Rate Blood Pressure 181/120 173/109 O2 Sat by Pulse 98 98 Oximetry Medical Decision Making - Medical Decision Making Was pt. sent in by a medical professional or institution (, PA, [employer], urgent care, hospital, or half-way...) When possible be specific @ -No Did you speak to anyone other than the patient for history (EMS, parent, family, police, friend...)? What history was obtained from this source @ -Patient's mother at bedside Did you review nursing and triage notes (agree or disagree)? Why? @ -I reviewed and agree with nursing and triage notes Were old charts reviewed (outside hosp., previous admission, EMS record, old EKG, old radiological studies, urgent care reports/EKG's, half-way records)? Report findings @ -Previous ER visits were reviewed Differential Diagnosis (chest pain, altered mental status, abdominal pain women, abdominal pain men, vaginal bleeding, weakness, fever, dyspnea, syncope, headache, dizziness, GI bleed, back pain, seizure, CVA, palpatations, mental health)? @ -Differential GI Bleed: Esophageal varices, aortoenteric fistula, Anahi-Bach, gastritis, peptic ulcer disease, diverticulosis, inflammatory bowel disease, hemorrhoids, fissure, colitis, malignancy, Meckels diverticulum, this is not meant to be an all- inclusive list. EKG interpreted by me (3pts min.). @ -As above X-rays interpreted by me (1pt min.). @ -None done CT interpreted by me (1pt min.). @ -None done U/S interpreted by me (1pt. min.). @ -None done What testing was considered but not performed or refused? (CT, X-rays, U/S, labs)? Why? @ -None What meds were considered but not given or refused? Why? @ -None Did you discuss the management of the patient with other professionals (professionals i.e. DrCristiano, PA, [employer], lab, RT, psych nurse, social service worker, admeasurer, teacher, transit police officer, family independence case manager)? Give summary @ -No Was smoking cessation discussed for >3mins.? @ -No Was critical care preformed (if so, how long)? @ -No Were there social determinants of health that impacted care today? How? (Homelessness, low income, unemployed, alcoholism, drug addiction, transport ation, low edu. Level, literacy, decrease access to med. care, [facility], rehab)? @ -Alcoholism Was there de-escalation of care discussed even if they declined (Discuss DNR or withdrawal of care, Hospice)? DNR status @ -No What co-morbidities impacted this encounter? (DM, HTN, Smoking, COPD, CAD, Cance r, CVA, ARF, Chemo, Hep., AIDS, mental health diagnosis, sleep apnea, morbid obesity)? @ -HIV Was patient admitted / discharged? Hospital course, mention meds given and route, prescriptions, significant lab abnormalities, going to OR and other pertinent info. @ -Admit Patient was seen and evaluated, on arrival patient is hypertensive and tachycardic, reporting alcohol withdrawal. Labs were obtained and patient was treated with Ativan. Patient was noted to have elevated lactic acid he was tr eated with IV fluids and lactic acid trended down throughout his stay in the ER. Upon reevaluation patient continues to have hypertension tremulousness nausea and a CIWA score of 9. At this time I do not feel it safe to discharge the patient home we will plan to admit for alcohol withdrawal. Throughout the stay in the ER patient has had no vomiting, hemoglobin is stable no signs of active GI bleeding during this evaluation. Undiagnosed new problem with uncertain prognosis? @ -No Drug Therapy requiring intensive monitoring for toxicity (Heparin, Nitro, Insulin, Cardizem)? @ -No Were any procedures done? @ -No Diagnosis/symptom? @ -Alcohol withdrawal Acute, or Chronic, or Acute on Chronic? @ -Acute Uncomplicated (without systemic symptoms) or Complicated (systemic symptoms)? @ -Complicated Side effects of treatment? @ -No Exacerbation, Progression, or Severe Exacerbation? @ -No Poses a threat to life or bodily function? How? (Chest pain, USA, NH, pneumonia, PE, COPD, DKA, ARF, appy, cholecystitis, CVA, Diverticulitis, Homicidal, Suicidal, threat to staff... and all critical care pts) @ -Yes - Lab Data Result diagrams: 09/24/23 22:05 09/24/23 22:05 Lab Results 09/24/23 09/24/23 09/24/23 Range/Units 22:05 22:05 22:05 WBC 6.6 (3.8-10.6) k/uL RBC 4.70 (4.30-5.90) m/uL Hgb 17.4 (13.0-17.5) gm/dL Hct 49.4 (39.0-53.0) % MCV 105.2 H (80.0-100.0) fL MCH 37.0 H (25.0-35.0) pg MCHC 35.2 (31.0-37.0) g/dL RDW 12.4 (11.5-15.5) % Plt Count 121 L (150-450) k/uL MPV 8.8 Neutrophils % 48 % Lymphocytes % 44 % Monocytes % 6 % Eosinophils % 0 % Basophils % 1 % Neutrophils # 3.1 (1.3-7.7) k/uL Lymphocytes # 2.9 (1.0-4.8) k/uL Monocytes # 0.4 (0-1.0) k/uL Eosinophils # 0.0 (0-0.7) k/uL Basophils # 0.1 (0-0.2) k/uL Macrocytosis Slight PT 11.7 (10.0-12.5) sec INR 1.1 (<1.2) APTT 24.1 (22.0-30.0) sec Sodium 141 (137-145) mmol/L Potassium 3.4 L (3.5-5.1) mmol/L Chloride 105 (98-107) mmol/L Carbon Dioxide 15 L (22-30) mmol/L Anion Gap 21 mmol/L BUN 9 (9-20) mg/dL Creatinine 0.73 (0.66-1.25) mg/dL Est GFR (CKD-EPI)AfAm >90 (>60 ml/min/1.73 sqM) Est GFR (CKD-EPI)NonAf >90 (>60 ml/min/1.73 sqM) Glucose 85 (74-99) mg/dL Lactic Ac Sepsis Rflx Plasma Lactic Acid Elio (0.7-2.0) mmol/L Calcium 8.4 (8.4-10.2) mg/dL Magnesium 1.3 L (1.6-2.3) mg/dL Total Bilirubin 2.1 H (0.2-1.3) mg/dL AST 131 H (17-59) U/L ALT 59 H (4-49) U/L Alkaline Phosphatase 90 (38-126) U/L Ammonia (<30) umol/L Total Protein 7.5 (6.3-8.2) g/dL Albumin 4.3 (3.5-5.0) g/dL Lipase 171 (23-300) U/L Urine Opiates Screen (NotDetected) Ur Oxycodone Screen (NotDetected) Urine Methadone Screen (NotDetected) Ur Barbiturates Screen (NotDetected) U Tricyclic Antidepress (NotDetected) Ur Phencyclidine Scrn (NotDetected) Ur Amphetamines Screen (NotDetected) U Methamphetamines Scrn (NotDetected) U Benzodiazepines Scrn (NotDetected) Urine Cocaine Screen (NotDetected) U Marijuana (THC) Screen (NotDetected) Blood Type Blood Type Confirm Blood Type Recheck Bld Type Recheck Status Antibody Screen Spec Expiration Date 09/24/23 09/24/23 09/24/23 Range/Units 22:05 22:05 22:10 WBC (3.8-10.6) k/uL RBC (4.30-5.90) m/uL Hgb (13.0-17.5) gm/dL Hct (39.0-53.0) % MCV (80.0-100.0) fL MCH (25.0-35.0) pg MCHC (31.0-37.0) g/dL RDW (11.5-15.5) % Plt Count (150-450) k/uL MPV Neutrophils % % Lymphocytes % % Monocytes % % Eosinophils % % Basophils % % Neutrophils # (1.3-7.7) k/uL Lymphocytes # (1.0-4.8) k/uL Monocytes # (0-1.0) k/uL Eosinophils # (0-0.7) k/uL Basophils # (0-0.2) k/uL Macrocytosis PT (10.0-12.5) sec INR (<1.2) APTT (22.0-30.0) sec Sodium (137-145) mmol/L Potassium (3.5-5.1) mmol/L Chloride (98-107) mmol/L Carbon Dioxide (22-30) mmol/L Anion Gap mmol/L BUN (9-20) mg/dL Creatinine (0.66-1.25) mg/dL Est GFR (CKD-EPI)AfAm (>60 ml/min/1.73 sqM) Est GFR (CKD-EPI)NonAf (>60 ml/min/1.73 sqM) Glucose (74-99) mg/dL Lactic Ac Sepsis Rflx Plasma Lactic Acid Elio 6.2 H* (0.7-2.0) mmol/L Calcium (8.4-10.2) mg/dL Magnesium (1.6-2.3) mg/dL Total Bilirubin (0.2-1.3) mg/dL AST (17-59) U/L ALT (4-49) U/L Alkaline Phosphatase (38-126) U/L Ammonia <9 (<30) umol/L Total Protein (6.3-8.2) g/dL Albumin (3.5-5.0) g/dL Lipase (23-300) U/L Urine Opiates Screen (NotDetected) Ur Oxycodone Screen (NotDetected) Urine Methadone Screen (NotDetected) Ur Barbiturates Screen (NotDetected) U Tricyclic Antidepress (NotDetected) Ur Phencyclidine Scrn (NotDetected) Ur Amphetamines Screen (NotDetected) U Methamphetamines Scrn (NotDetected) U Benzodiazepines Scrn (NotDetected) Urine Cocaine Screen (NotDetected) U Marijuana (THC) Screen (NotDetected) Blood Type O Positive Blood Type Confirm O Positive Blood Type Recheck No Previous Record Bld Type Recheck Status CABO Indicated Antibody Screen NEGATIVE Spec Expiration Date 09/27/2023230409/24/23 09/25/23 09/25/23 Range/Units 23:12 00:01 00:19 WBC (3.8-10.6) k/uL RBC (4.30-5.90) m/uL Hgb (13.0-17.5) gm/dL Hct (39.0-53.0) % MCV (80.0-100.0) fL MCH (25.0-35.0) pg MCHC (31.0-37.0) g/dL RDW (11.5-15.5) % Plt Count (150-450) k/uL MPV Neutrophils % % Lymphocytes % % Monocytes % % Eosinophils % % Basophils % % Neutrophils # (1.3-7.7) k/uL Lymphocytes # (1.0-4.8) k/uL Monocytes # (0-1.0) k/uL Eosinophils # (0-0.7) k/uL Basophils # (0-0.2) k/uL Macrocytosis PT (10.0-12.5) sec INR (<1.2) APTT (22.0-30.0) sec Sodium (137-145) mmol/L Potassium (3.5-5.1) mmol/L Chloride (98-107) mmol/L Carbon Dioxide (22-30) mmol/L Anion Gap mmol/L BUN (9-20) mg/dL Creatinine (0.66-1.25) mg/dL Est GFR (CKD-EPI)AfAm (>60 ml/min/1.73 sqM) Est GFR (CKD-EPI)NonAf (>60 ml/min/1.73 sqM) Glucose (74-99) mg/dL Lactic Ac Sepsis Rflx Y Plasma Lactic Acid Elio 2.5 H* (0.7-2.0) mmol/L Calcium (8.4-10.2) mg/dL Magnesium (1.6-2.3) mg/dL Total Bilirubin (0.2-1.3) mg/dL AST (17-59) U/L ALT (4-49) U/L Alkaline Phosphatase (38-126) U/L Ammonia (<30) umol/L Total Protein (6.3-8.2) g/dL Albumin (3.5-5.0) g/dL Lipase (23-300) U/L Urine Opiates Screen Not Detected (NotDetected) Ur Oxycodone Screen Not Detected (NotDetected) Urine Methadone Screen Not Detected (NotDetected) Ur Barbiturates Screen Not Detected (NotDetected) U Tricyclic Antidepress Not Detected (NotDetected) Ur Phencyclidine Scrn Not Detected (NotDetected) Ur Amphetamines Screen Not Detected (NotDetected) U Methamphetamines Scrn Not Detected (NotDetected) U Benzodiazepines Scrn Detected H (NotDetected) Urine Cocaine Screen Not Detected (NotDetected) U Marijuana (THC) Screen Not Detected (NotDetected) Blood Type Blood Type Confirm Blood Type Recheck Bld Type Recheck Status Antibody Screen Spec Expiration Date 09/25/23 Range/Units 01:45 WBC (3.8-10.6) k/uL RBC (4.30-5.90) m/uL Hgb (13.0-17.5) gm/dL Hct (39.0-53.0) % MCV (80.0-100.0) fL MCH (25.0-35.0) pg MCHC (31.0-37.0) g/dL RDW (11.5-15.5) % Plt Count (150-450) k/uL MPV Neutrophils % % Lymphocytes % % Monocytes % % Eosinophils % % Basophils % % Neutrophils # (1.3-7.7) k/uL Lymphocytes # (1.0-4.8) k/uL Monocytes # (0-1.0) k/uL Eosinophils # (0-0.7) k/uL Basophils # (0-0.2) k/uL Macrocytosis PT (10.0-12.5) sec INR (<1.2) APTT (22.0-30.0) sec Sodium (137-145) mmol/L Potassium (3.5-5.1) mmol/L Chloride (98-107) mmol/L Carbon Dioxide (22-30) mmol/L Anion Gap mmol/L BUN (9-20) mg/dL Creatinine (0.66-1.25) mg/dL Est GFR (CKD-EPI)AfAm (>60 ml/min/1.73 sqM) Est GFR (CKD-EPI)NonAf (>60 ml/min/1.73 sqM) Glucose (74-99) mg/dL Lactic Ac Sepsis Rflx Plasma Lactic Acid Elio 1.6 (0.7-2.0) mmol/L Calcium (8.4-10.2) mg/dL Magnesium (1.6-2.3) mg/dL Total Bilirubin (0.2-1.3) mg/dL AST (17-59) U/L ALT (4-49) U/L Alkaline Phosphatase (38-126) U/L Ammonia (<30) umol/L Total Protein (6.3-8.2) g/dL Albumin (3.5-5.0) g/dL Lipase (23-300) U/L Urine Opiates Screen (NotDetected) Ur Oxycodone Screen (NotDetected) Urine Methadone Screen (NotDetected) Ur Barbiturates Screen (NotDetected) U Tricyclic Antidepress (NotDetected) Ur Phencyclidine Scrn (NotDetected) Ur Amphetamines Screen (NotDetected) U Methamphetamines Scrn (NotDetected) U Benzodiazepines Scrn (NotDetected) Urine Cocaine Screen (NotDetected) U Marijuana (THC) Screen (NotDetected) Blood Type Blood Type Confirm Blood Type Recheck Bld Type Recheck Status Antibody Screen Spec Expiration Date Disposition Clinical Impression: Alcohol withdrawal Disposition: ADMITTED IP TO THIS HOSP Condition: Stable Is patient prescribed a controlled substance at d/c from ED?: No Referrals: None,Stated [Primary Care Provider] - 1-2 days
[2023-09-24] MEDS: SODIUM CHLORIDE 0.9% 1,000 ML IV STA (22:23)
[2023-09-24] MEDS: LORazepam 2 MG/ML INJ IV STA (22:24)
[2023-09-24] MEDS: ONDANSETRON 4 MG/2 ML VIAL IVP STA (22:25)
[2023-09-24] MEDS: PANTOPRAZOLE 40 MG/10 ML VIAL IVP STA (22:28)
[2023-09-24 22:30] LABS: Basophils # (A) 0.1 k/uL (0-0.2); Basophils % (A) 1 %; Eosinophils % (A) 0 %; HCT 49.4 % (39.0-53.0); HGB 17.4 gm/dL (13.0-17.5); Lymphocytes # (A) 2.9 k/uL (1.0-4.8); Lymphocytes % (A) 44 %; MCHC 35.2 g/dL (31.0-37.0); MCV 105.2 fL (80.0-100.0); Macrocytosis Slight; Mean Platelet Volume 8.8; Monocytes # (A) 0.4 k/uL (0-1.0); Monocytes % (A) 6 %; Neutrophils # (A) 3.1 k/uL (1.3-7.7); Neutrophils % (A) 48 %; Platelet Count 121 k/uL (150-450); RDW 12.4 % (11.5-15.5); WBC 6.6 k/uL (3.8-10.6)
[2023-09-24 22:38] LABS: INR 1.1 (<1.2); Partial Thromboplastin Time 24.1 sec (22.0-30.0); Prothrombin Time 11.7 sec (10.0-12.5)
[2023-09-24 22:41] LABS: ALT 59 U/L (4-49); AST 131 U/L (17-59); African American GFR (CKD) >90 (>60 ml/min/1.73 sqM); Albumin 4.3 g/dL (3.5-5.0); Alkaline Phosphatase 90 U/L (38-126); Anion Gap 21 mmol/L; Blood Urea Nitrogen 9 mg/dL (9-20); Calcium 8.4 mg/dL (8.4-10.2); Carbon Dioxide 15 mmol/L (22-30); Chloride 105 mmol/L (98-107); Glucose 85 mg/dL (74-99); Lipase 171 U/L (23-300); Magnesium 1.3 mg/dL (1.6-2.3); Non-African American GFR(CKD) >90 (>60 ml/min/1.73 sqM); Potassium 3.4 mmol/L (3.5-5.1); Sodium 141 mmol/L (137-145); Total Bilirubin 2.1 mg/dL (0.2-1.3); Total Protein 7.5 g/dL (6.3-8.2)
[2023-09-24 23:07] LABS: Lactic Acid, Venous 6.2 mmol/L (0.7-2.0)
[2023-09-24] MEDS: SODIUM CHLORIDE 0.9% 1,000 ML IV SCH (23:34)
[2023-09-24] MEDS: MAGNESIUM SULFATE-D5W PMX 1 GM in DEXTROSE/WATER 1 100ML.BAG IVPB SCH (23:34)
[2023-09-24] MEDS: THIAMINE 100 MG/ML 2 ML VIAL IM STA (23:35)
[2023-09-25 00:48] LABS: Amphetamine Screen,Urine Not Detected (NotDetected); Barbiturate Screen,Urine Not Detected (NotDetected); Benzodiazepines Screen,Urine Detected (NotDetected); Cocaine Screen,Urine Not Detected (NotDetected); Methadone Screen, Urine Not Detected (NotDetected); Opiate Screen,Urine Not Detected (NotDetected); Oxycodone Screen, Urine Not Detected (NotDetected); Phencyclidine Screen,Urine Not Detected (NotDetected); Tricyclic Antidepressant,Urine Not Detected (NotDetected); Urn Cannabinoid Scrn Not Detected (NotDetected)
[2023-09-25] MEDS: LORazepam 2 MG/ML INJ IV PRN (02:50)
[2023-09-25] MEDS ORDERED: NALOXONE 0.4 MG/ML 1 ML VIAL IV PRN (03:13)
[2023-09-25] MEDS ORDERED: LORazepam 1 MG TAB PO PRN (05:24)
--- NOTE | 2023-09-25 05:32 | P.HPIM ---
History of Present Illness H&P Date: 09/25/23 Chief Complaint: Alcohol withdrawal 43-year-old male with HIV alcohol dependence Patient coming in due to repeated nausea vomiting unable to keep anything down, he admits to heavy drinking more than 15 cocktails every day however he decided to quit today as he was feeling terrible due to nausea vomiting sometimes mixed with fresh blood. Denies any epigastric pain denies any abdominal pain denies any fevers chills denies any history of GI bleeding denies any melena. As he decided to quit he started feeling anxious shaky. He tries to keep hydrated by drinking water but he kept vomiting mixed with blood. For which she decided to come in for evaluation as he never been through severe withdrawals like this in the past denies any history of withdrawal seizures Patient denies any illicit drugs. He claims to be compliant with his HIV medications he does not know his CD4 count review of systems Pertinent positives as noted in HPI. All other systems were reviewed and are negative on exam Constitutional: No acute distress, conversant, pleasant Eyes: Anicteric sclerae, moist conjunctiva, Pupils equal round reactive to light ENMT: NC/AT Oropharynx clear, no erythema, or exudates Neck: Supple, no masses, or JVD No carotid bruits No thyromegaly Lungs: Clear to auscultation Clear to percussion Normal respiratory effort, no accessory muscle use Cardiovascular: Heart regular in rate and rhythm, No murmurs, gallops, or rubs No peripheral edema Abdominal: Soft Nontender, no guarding, rebound or rigidity Abdomen moving with respiration Normoactive bowel sounds Extremities: No digital cyanosis No clubbing Pedal pulses intact and symmetrical Radial pulses intact and symmetrical No calf tenderness Psychiatric: Alert and oriented to person, place and time Appropriate affect fair judgement Neuro Muscles Strength 5/5 in all 4 extremities Sensation to light touch grossly present throughout Cranial nerves II-XII grossly intact Past Medical History Past Medical History: Hypertension Additional Past Medical History / Comment(s): HIV History of Any Multi-Drug Resistant Organisms: None Reported Additional Past Surgical History / Comment(s): colostomy and reversal-pt did not want to discuss details. Past Anesthesia/Blood Transfusion Reactions: No Reported Reaction Past Psychological History: Anxiety, Depression Smoking Status: Current every day smoker Past Alcohol Use History: Abuse Past Drug Use History: Marijuana - Past Family History Father Family Medical History: Cancer Additional Family Medical History / Comment(s): Father of stomach cancer. Mother Family Medical History: No Reported History Additional Family Medical History / Comment(s): Mother is healthy Medications and Allergies Home Medications Medication Instructions Recorded Confirmed Type Bictegrav/Emtricit/Tenofov Ala 1 tab PO HS 05/28/20 05/28/20 History [Biktarvy 50-200-25 mg Tablet] Sulfamethox-Tmp 800-160Mg [Bactrim 1 tab PO HS 05/28/20 05/28/20 History DS 800-160 mg] Allergies Allergy/AdvReac Type Severity Reaction Status Date / Time No Known Allergies Allergy Verified 09/24/23 21:59 Physical Exam Vitals: Vital Signs Temp Pulse Resp BP Pulse Ox 09/25/23 05:00 52 L 18 196/112 97 09/25/23 02:00 66 18 173/109 98 09/25/23 01:00 65 18 181/120 98 09/25/23 00:00 64 18 171/114 98 09/24/23 23:38 64 18 173/106 98 09/24/23 21:55 98.1 F 86 18 199/119 98 Intake and Output 09/24/23 09/24/23 09/25/23 14:59 22:59 06:59 Other: Weight 90.718 kg Results CBC & Chem 7: 09/24/23 22:05 09/24/23 22:05 Labs: Abnormal Lab Results - Last 24 Hours (Table) 09/24/23 09/24/23 09/24/23 Range/Units 22:05 22:05 22:05 MCV 105.2 H (80.0-100.0) fL MCH 37.0 H (25.0-35.0) pg Plt Count 121 L (150-450) k/uL Potassium 3.4 L (3.5-5.1) mmol/L Carbon Dioxide 15 L (22-30) mmol/L Plasma Lactic Acid Elio 6.2 H* (0.7-2.0) mmol/L Magnesium 1.3 L (1.6-2.3) mg/dL Total Bilirubin 2.1 H (0.2-1.3) mg/dL AST 131 H (17-59) U/L ALT 59 H (4-49) U/L U Benzodiazepines Scrn (NotDetected) 09/25/23 09/25/23 Range/Units 00:01 00:19 MCV (80.0-100.0) fL MCH (25.0-35.0) pg Plt Count (150-450) k/uL Potassium (3.5-5.1) mmol/L Carbon Dioxide (22-30) mmol/L Plasma Lactic Acid Elio 2.5 H* (0.7-2.0) mmol/L Magnesium (1.6-2.3) mg/dL Total Bilirubin (0.2-1.3) mg/dL AST (17-59) U/L ALT (4-49) U/L U Benzodiazepines Scrn Detected H (NotDetected) Assessment and Plan Assessment: 43-year-old male with HIV and alcohol dependence coming in for repeated nausea vomiting streaks of blood in his vomitus and severe withdrawal symptoms I discussed case with ED doctor and accepted the admission for acute alcohol withdrawal symptoms rule out GI bleeding with anticipated length of stay more than 2 midnights Alcohol dependence with alcohol withdrawal syndrome Fall precautions Seizure precautions Benzos per CIWA scale Thiamine daily IV fluid hydration normal saline 50 cc/h Patient counseled to quit drinking Initial lactic acid 6.5 upon repeat resolved down to 1.6 HIV on medications Continue home medications currently on ART and Bactrim for prophylaxis Suspected GI bleeding N.p.o. Protonix p.o. 40 mg twice daily Monitor hemoglobin Hemoglobin initially 17.4 Mild thrombocytopenia Suspected secondary to HIV Continue to monitor Renal function unremarkable BUN 9 creatinine 0.7 Full code DVT prophylaxis mechanical secondary to GI bleed GI prophylaxis on Protonix EKG showing T wave inversion in lead III, V1, V2 and V3 concerning for inferior ischemia and anterior lateral ischemia Check troponin Cardiology consult Patient denies any chest pain or trouble breathing Patient denies any cardiac history
[2023-09-25] MEDS: POTASSIUM CHLORIDE 10 MEQ in WATER FOR INJECTION 1 100ML.BAG IVPB SCH (05:45)
[2023-09-25] MEDS: FOLIC ACID 1 MG TAB PO SCH (08:43)
[2023-09-25] MEDS: THIAMINE 100 MG TAB PO SCH (08:43)
[2023-09-25] MEDS: MULTIVITAMINS, THERA 1 EACH TAB PO SCH (08:43)
[2023-09-25] MEDS: PANTOPRAZOLE 40 MG TABLET PO SCH (08:44)
[2023-09-25] MEDS: ASPIRIN 81 MG PO SCH (08:46)
[2023-09-25] MEDS: lisinopriL 20 MG TAB PO SCH (08:46)
[2023-09-25] MEDS: amLODIPine 10 MG TAB PO SCH (08:47)
--- NOTE | 2023-09-25 08:48 | P.PN ---
Subjective Progress Note Date: 09/25/23 Hospital course: Patient is a 43-year-old male with a past medical history of HIV, hypertension, colostomy with reversal, anxiety, depression, nicotine dependence, cannabinoid use disorder, and daily alcohol abuse. He presented to the emergency department on 09/24/2023 secondary to reports of alcohol withdraw and hematemesis with reports of blood streaked emesis. Patient underwent full evaluation in the emergency department. Vital signs upon arrival show patient to be in hypertens bonnie urgency with blood pressure 199/119, heart rate 86, respiratory rate 18, temp 98.1 F, and SpO2 of 98% on room air. EKG completed showing sinus bradycardia at 50 bpm with T wave inversion inferior leads II, III and aVF. CT head completed showing mild atrophy and negative for acute intracranial abnormality. Chest x-ray completed negative for acute cardiopulmonary process. Labs completed and reviewed. CBC showing macrocytosis with MCV of 105.2 and thrombocytopenia with platelet count of 121. Coagulation profile normal findings. BMP showing hypokalemia with potassium of 3.4 and hypocarbia with bicarb of 15. Initial lactate is 6.2. Magnesium low at 1.3. Liver profile showing hyperbilirubinemia with total bili of 2.1 and elevated liver enzymes with AST of 131 and ALT of 59. Ammonia was less than 9. Lipase normal findings at 171. Troponin 0.022. Urine drug screen positive for benzodiazepines. Patient admitted under our services with consultation to cardiology secondary to inferior lead EKG changes. Patient received aggressive IV fluid hydration resulting in resolution of lactic acidosis with lactate decreasing from 6.2 down to 1.6. Physical exam: Vital signs reviewed and stable. General: Nontoxic, no distress and appears stated age. Derm: Skin warm and dry, normal coloration for ethnicity. Head: Atraumatic, normocephalic and symmetric. Eyes: EOMs intact, no lid lag, and anicteric sclera Mouth: no lip lesions, mucus membranes moist Cardiovascular: regular rate and rhythm with normal S1S2, no murmur, positive posterior tibial pulses bilaterally, and cap refill < 2 seconds. Lungs: Respirations even, regular, and unlabored on room air. Lungs CTA bilate rally, no rhonchi, no rales, no wheezing, and no accessory muscle usage. Abdominal: soft, nontender to palpation, no guarding, no appreciable organomegaly Ext: ROM intact. No gross muscle atrophy, no edema, no contractures Neuro: Speech clear, face symmetrical and CN II-XII grossly intact with no noted focal neuro deficits Psych: Alert and oriented to person, place, time, and situation. Appropriate and pleasant affect. Assessment and Plan of Care: Alcohol withdraw and active alcoholic Hyperbilirubinemia with transaminitis, possibly secondary to daily alcohol abuse versus daily medication regimen with Biktarvy for treatment of HIV Bicytopenia, likely secondary to daily alcohol abuse Hypokalemia Hypomagnesemia Lactic acidosis, possibly secondary to alcoholic ketoacidosis versus medication effects of Biktarvy resolved after aggressive IV fluid hydration -Continue monitoring of CIWA scores and patient to be medicated with Ativan 0.5 mg every 4 hours as needed for CIWA score of 4-5, Ativan 1 mg every 4 hours for CIWA score of 6-7, Ativan 2 mg every 3 hours CIWA score of 8-9, and Ativan 2 mg every 2 hours forr CIWA score of 10 or greater. -Continuous IV hydration. -Thiamine 100 mg daily, Multivitamin daily and Folate 1 mg daily -Seizure, fall, aspiration, and elopement precautions in place. -Urine drug screen positive for benzodiazepines -Continued close monitoring of electrolytes and replace as needed. -Telemetry monitoring. Abnormal EKG, inferior T wave inversion Hypertensive urgency, likely multifactorial ry to alcohol withdrawal along with untreated hypertension -Patient reports he was previously on antihypertensive medication but does not recall dose or medication and stopped taking because he no longer wanted to take. -Patient started on amlodipine 5 mg daily and we will continue to treat alcohol withdraw via CIWA protocol with symptom triggered medication management with benzodiazepines. -Cardiology consulted, appreciate recommendations -Telemetry monitoring -Troponin 0.022 -Cardiac diet -Order placed for aspirin 81 mg daily. -Echocardiogram ordered Reports of isolated episode of hematemesis -Reports blood streaked emesis but not vomiting of blood. -Hemoglobin stable at 17.4 with no further episodes of hematemesis. -Will monitor hemoglobin closely with repeat CBC. -Protonix 40 mg twice daily. HIV -Continue Biktarvy 50 200 25 mg tablets nightly. Data and imaging reviewed: Morning labs reviewed. CBC showing macrocytosis with MCV of 105.9 and bicytopenia with WBC count of 2.88 and platelet count of 83. BMP unremarkable. Magnesium normal findings at 2.1. Liver profile showing elevated AST of 77 and hyperbilirubinemia with bilirubin of 1.7. Vital signs reviewed. Blood pressure 190/123, heart rate 46, respiratory rate 16, temp 98.4 F, and SpO2 of 97% on room air. CODE STATUS: Full code DVT prophylaxis: SCDs Anticipated discharge date: Clinical course to determine Anticipated discharge place: Clinical course to determine Patient was seen independently by Nurse Pracitioner. This document was prepared using [employer] dictation software. Please allow for errors in computer forwarding system markup clerk, while rare they do occur. I reviewed the documentation as provided by the BLUE above, who is the original author of this note. I agree with the documented assessment and plan, with the following changes: none Objective - Vital Signs Vital signs: Vital Signs Temp 98.1 F 09/24/23 21:55 Pulse 52 L 09/25/23 05:00 Resp 18 09/25/23 05:00 BP 196/112 09/25/23 05:00 Pulse Ox 97 09/25/23 05:00 FiO2 Intake & Output 09/24/23 09/25/23 09/25/23 18:59 06:59 18:59 Weight 90.718 kg - Labs CBC & Chem 7: 09/25/23 06:44 09/25/23 06:44 Labs: Abnormal Lab Results - Last 24 Hours (Table) 09/24/23 09/24/23 09/24/23 Range/Units 22:05 22:05 22:05 MCV 105.2 H (80.0-100.0) fL MCH 37.0 H (25.0-35.0) pg Plt Count 121 L (150-450) k/uL Potassium 3.4 L (3.5-5.1) mmol/L Carbon Dioxide 15 L (22-30) mmol/L Plasma Lactic Acid Elio 6.2 H* (0.7-2.0) mmol/L Magnesium 1.3 L (1.6-2.3) mg/dL Total Bilirubin 2.1 H (0.2-1.3) mg/dL AST 131 H (17-59) U/L ALT 59 H (4-49) U/L U Benzodiazepines Scrn (NotDetected) 09/25/23 09/25/23 Range/Units 00:01 00:19 MCV (80.0-100.0) fL MCH (25.0-35.0) pg Plt Count (150-450) k/uL Potassium (3.5-5.1) mmol/L Carbon Dioxide (22-30) mmol/L Plasma Lactic Acid Elio 2.5 H* (0.7-2.0) mmol/L Magnesium (1.6-2.3) mg/dL Total Bilirubin (0.2-1.3) mg/dL AST (17-59) U/L ALT (4-49) U/L U Benzodiazepines Scrn Detected H (NotDetected)
[2023-09-25] MEDS ORDERED: amLODIPine 5 MG TAB PO SCH (09:00)
--- NOTE | 2023-09-25 09:56 | P.CRDCN ---
History of Present Illness Consult date: 09/25/23 Reason for Consult (text): EKG changes suggestive of inferior/anterior lateral ischemia History of present illness: History of present illness: This is a 43-year-old male with past medical history of hypertension, HIV, tobacco use, alcohol abuse, marijuana use. Patient is not currently taking blood pressure medications but states he was previously on lisinopril. He has not been to a PCP in a while. He denies any cardiac history and does not follow with a catering server. We have been asked to evaluate the patient for concerning EKG changes. Patient denies having any chest pain at this time. He presented with blood pressure of 199/119. Blood pressure is currently 196/112. Patient is status post IV fluids, potassium and magnesium replacement, Ativan and vitamin B1. He is seen today in the emergency center waiting for bed on the [facility] unit. Patient has an active alcohol withdrawal. EKG T wave inversions in lead III V1V3, no previous EKG to compare WBC 6.6, hemoglobin 17.4, platelet count 121. INR 1.1. Sodium 141, potassium 3.4, CO2 15, creatinine 0.73. Initial lactic acid 6.2 and repeat 1.6. Magnesium 1.3. Total bilirubin 2.1, AST 131, ALT 59, alkaline phosphatase 90. Troponin negative x 1. Ammonia level less than 9. Lipase 171. Urine drug screen positive for benzodiazepines Home cardiac medications: None Review Of Systems: At the time of my exam: CONSTITUTIONAL: Denies fever or chills. HEENT: Denies blurred vision, vision changes, or eye pain. Denies hemoptysis CARDIOVASCULAR: Denies chest pain. Denies orthopnea. Denies PND. Denies palpitations RESPIRATORY: Denies shortness of breath. GASTROINTESTINAL: Denies abdominal pain. Denies nausea or vomiting. HEMATOLOGIC: Denies bleeding disorders. GENITOURINARY: Denies any blood in urine. SKIN: Denies pruitis. Denies rash. Physical examination: Gen: This is a 43-year-old male in no acute respiratory distress. VS: reviewed HEENT: Head is atraumatic, normocephalic. Pupils equal, round. Sclerae is anicteric. NECK: Supple. No JVD. LUNGS: Clear to auscultation. No wheezes or rhonchi. No intercostal retractions. HEART: Regular rate and rhythm. No murmur. ABDOMEN: Soft No tenderness. EXTREMITIES: No pedal edema. No calf tenderness. NEUROLOGICAL: Patient is awake, alert and oriented x3. Tremors noted. Assessment: Abnormal EKG most likely secondary to uncontrolled hypertension Alcohol withdrawal HIV Tobacco use and marijuana use Concern for possible GI bleed Plan: Obtain 1 more troponin Obtain 2-D echocardiogram and Doppler study to assess cardiac structure and function Increase amlodipine to 10 mg daily and add lisinopril 20 mg daily Monitor blood pressure and if this is improved as well as repeat troponin and echocardiogram are unremarkable, patient is cleared for discharge from a cardiology perspective once medical conditions are addressed. Patient may follow-up with his PCP first and then follow-up with cardiology in 6 to 8 weeks. Thank you kindly for this consultation. Nurse practitioner note has been reviewed, I agree with documented findings and plan of care. Patient was seen and examined. Past Medical History Past Medical History: Hypertension Additional Past Medical History / Comment(s): HIV History of Any Multi-Drug Resistant Organisms: None Reported Additional Past Surgical History / Comment(s): colostomy and reversal-pt did not want to discuss details. Past Anesthesia/Blood Transfusion Reactions: No Reported Reaction Past Psychological History: Anxiety, Depression Smoking Status: Current every day smoker Past Alcohol Use History: Abuse Past Drug Use History: Marijuana - Past Family History Father Family Medical History: Cancer Additional Family Medical History / Comment(s): Father of stomach cancer. Mother Family Medical History: No Reported History Additional Family Medical History / Comment(s): Mother is healthy Medications and Allergies Home Medications Medication Instructions Recorded Confirmed Type Bictegrav/Emtricit/Tenofov Ala 1 tab PO DAILY 05/28/20 09/25/23 History [Biktarvy 50-200-25 mg Tablet] Allergies Allergy/AdvReac Type Severity Reaction Status Date / Time No Known Allergies Allergy Verified 09/25/23 07:06 Physical Exam Vitals: Vital Signs Temp Pulse Resp BP Pulse Ox 09/25/23 05:00 52 L 18 196/112 97 09/25/23 02:00 66 18 173/109 98 09/25/23 01:00 65 18 181/120 98 09/25/23 00:00 64 18 171/114 98 09/24/23 23:38 64 18 173/106 98 09/24/23 21:55 98.1 F 86 18 199/119 98 Intake and Output 09/24/23 09/25/23 09/25/23 22:59 06:59 14:59 Other: Weight 90.718 kg Results 09/24/23 22:05 09/24/23 22:05 Cardiac Enzymes 09/24/23 09/25/23 Range/Units 22:05 06:44 AST 131 H (17-59) U/L Troponin I 0.022 (0.000-0.034) ng/mL Coagulation 09/24/23 Range/Units 22:05 PT 11.7 (10.0-12.5) sec APTT 24.1 (22.0-30.0) sec CBC 09/24/23 Range/Units 22:05 WBC 6.6 (3.8-10.6) k/uL RBC 4.70 (4.30-5.90) m/uL Hgb 17.4 (13.0-17.5) gm/dL Hct 49.4 (39.0-53.0) % Plt Count 121 L (150-450) k/uL Comprehensive Metabolic Panel 09/24/23 Range/Units 22:05 Sodium 141 (137-145) mmol/L Potassium 3.4 L (3.5-5.1) mmol/L Chloride 105 (98-107) mmol/L Carbon Dioxide 15 L (22-30) mmol/L BUN 9 (9-20) mg/dL Creatinine 0.73 (0.66-1.25) mg/dL Glucose 85 (74-99) mg/dL Calcium 8.4 (8.4-10.2) mg/dL AST 131 H (17-59) U/L ALT 59 H (4-49) U/L Alkaline Phosphatase 90 (38-126) U/L Total Protein 7.5 (6.3-8.2) g/dL Albumin 4.3 (3.5-5.0) g/dL Current Medications Generic Name Dose Route Start Last Admin Trade Name Freq PRN Reason Stop Dose Admin Amlodipine Besylate 5 mg 09/25/23 09:00 Amlodipine 5 Mg Tab PO DAILY [facility] Folic Acid 1 mg 09/25/23 09:00 Folic Acid 1 Mg Tab PO DAILY [facility] Sodium Chloride 1,000 mls @ 150 mls/hr 09/24/23 23:15 09/25/23 05:23 Saline 0.9% IV 150 mls/hr .[id number] [facility] Administration Lorazepam 1 mg 09/24/23 23:13 09/25/23 05:51 Lorazepam 2 Mg/Ml Inj IV 1 mg Q2HR PRN Administration CIWA 8 or 9 Lorazepam 0.5 mg 09/25/23 05:24 Lorazepam 0.5 Mg Tab PO Q4HR PRN Ciwa 4 To 5 Lorazepam 1 mg 09/25/23 05:24 Lorazepam 1 Mg Tab PO Q4HR PRN Ciwa 6 To 7 Lorazepam 1 mg 09/25/23 05:24 Lorazepam 2 Mg/Ml Inj IV Q1HR PRN CIWA 10 to 15 Multivitamins 1 each 09/25/23 09:00 Multivitamins, Thera 1 Each Tab PO DAILY [facility] Naloxone HCl 0.2 mg 09/25/23 03:13 Naloxone 0.4 Mg/Ml 1 Ml Vial IV Q2M PRN Opioid Reversal Non-Formulary Medication 1 tab 09/25/23 21:00 Bictegrav/Emtricit/Tenofov Ala [Biktarvy 50-200-25 Mg Tablet] PO HS [facility] Pantoprazole Sodium 40 mg 09/25/23 07:30 Pantoprazole 40 Mg Tablet PO AC-BID [facility] Thiamine HCl 100 mg 09/25/23 09:00 Thiamine 100 Mg Tab PO DAILY [facility] Intake and Output 09/24/23 09/25/23 09/25/23 22:59 06:59 14:59 Other: Weight 90.718 kg 09/24/23 22:05 09/24/23 22:05
[2023-09-25 11:37] LABS: BUN/Creat Ratio 12.12 Ratio (12.00-20.00); Blood Urea Nitrogen 9.7 mg/dL (9.0-27.0); Carbon Dioxide 24.1 mmol/L (21.6-31.8); Chloride 104 mmol/L (96-109); Glucose 76 mg/dL (70-110); Potassium 3.7 mmol/L (3.5-5.5); Sodium 140 mmol/L (135-145)
[2023-09-25 11:38] LABS: ALT 46 U/L (10-49); AST 77 U/L (14-35); Albumin 3.5 g/dL (3.8-4.9); Albumin/Globulin Ratio 1.52 Ratio (1.60-3.17); Alkaline Phosphatase 62 U/L (41-126); Calcium 7.4 mg/dL (8.7-10.3); Globulin 2.3 g/dL (1.6-3.3); Magnesium 2.1 mg/dL (1.5-2.4); Total Bilirubin 1.7 mg/dL (0.3-1.2); Total Protein 5.8 g/dL (6.2-8.2)
[2023-09-25 12:43] LABS: Basophils # (M) 0.03 X 10*3/uL (0.00-0.10); Eosinophils # (M) 0.06 X 10*3/uL (0.04-0.35); HCT 43.1 % (39.6-50.0); HGB 14.9 g/dL (13.0-17.0); Lymphocytes # (M) 1.44 X 10*3/uL (0.90-5.00); MCH 36.6 pg (27.0-32.0); MCHC 34.6 g/dL (32.0-37.0); MCV 105.9 FL (80.0-97.0); Macrocytosis (M) 2+; Mean Platelet Volume 11.2 FL (9.5-12.2); NRBC Per 100 WBC 0 X 10*3/uL (0.00-0.01); Neutrophils # (M) 1.15 X 10*3/uL (1.80-7.70); Neutrophils % (M) 40 %; Platelet Count 83 X 10*3/uL (140-440); RBC 4.07 X 10*6/uL (4.40-5.60); RDW 12.1 % (11.5-14.5); WBC 2.88 X 10*3/uL (4.50-10.00)
[2023-09-25] MEDS: LORazepam 0.5 MG TAB PO PRN (16:25)
[2023-09-25 19:06] LABS: Chol/HDL Ratio 2.72 Ratio; LDL Cholesterol,Calculated 77.3 mg/dL (0.0-131.0)
[2023-09-25] MEDS ORDERED: SULFAMETHOX-TMP 800-160MG 1 EACH TAB PO SCH (21:00)
[2023-09-25] MEDS: NON FORMULARY DRUG (Bictegrav/Emtricit/Tenofov Ala [Biktarvy 50-200-25 Mg Tablet] 1 EACH T PO SCH (21:18)
[2023-09-26] MEDS: HYDROcodone/APAP 5-325MG 1 EACH TAB PO PRN (01:40)
[2023-09-26] MEDS: ONDANSETRON 4 MG/2 ML VIAL IVP PRN (07:54)
[2023-09-26] MEDS: LORazepam 2 MG/ML INJ IV PRN (08:04)
[2023-09-26 10:21] LABS: HCT 46.1 % (39.0-53.0); HGB 15.8 gm/dL (13.0-17.5); MCHC 34.2 g/dL (31.0-37.0); MCV 105.3 fL (80.0-100.0); Macrocytosis Slight; Mean Platelet Volume 10.5; RBC 4.37 m/uL (4.30-5.90); RDW 12.2 % (11.5-15.5)
[2023-09-26 11:14] LABS: ALT 48 U/L (4-49); AST 86 U/L (17-59); African American GFR (CKD) >90 (>60 ml/min/1.73 sqM); Albumin 3.3 g/dL (3.5-5.0); Albumin/Globulin Ratio 1.1; Alkaline Phosphatase 66 U/L (38-126); Anion Gap 7 mmol/L; Blood Urea Nitrogen 7 mg/dL (9-20); Calcium 7.7 mg/dL (8.4-10.2); Carbon Dioxide 24 mmol/L (22-30); Chloride 108 mmol/L (98-107); Globulin 2.9 g/dL; Glucose 83 mg/dL (74-99); Magnesium 1.7 mg/dL (1.6-2.3); Non-African American GFR(CKD) >90 (>60 ml/min/1.73 sqM); Potassium 3.4 mmol/L (3.5-5.1); Sodium 139 mmol/L (137-145); Total Bilirubin 1.5 mg/dL (0.2-1.3); Total Protein 6.2 g/dL (6.3-8.2)
[2023-09-26 11:42] LABS: Platelet Count 55 k/uL (150-450)
[2023-09-26] MEDS: POTASSIUM CHLORIDE ER 20 MEQ TAB.ER PO STA (12:23)
[2023-09-26] MEDS: MAGNESIUM SULFATE-D5W PMX 1 GM in DEXTROSE/WATER 1 100ML.BAG IVPB SCH (12:23)
--- NOTE | 2023-09-26 15:04 | P.PN ---
Subjective Progress Note Date: 09/26/23 Hospital course: Patient is a 43-year-old male with a past medical history of HIV, hypertension, colostomy with reversal, anxiety, depression, nicotine dependence, cannabinoid use disorder, and daily alcohol abuse. He presented to the emergency department on 09/24/2023 secondary to reports of alcohol withdraw and hematemesis with reports of blood streaked emesis. Patient underwent full evaluation in the emergency department. Vital signs upon arrival show patient to be in hypertensive urgency with blood pressure 199/119, heart rate 86, respiratory rate 18, temp 98.1 F, and SpO2 of 98% on room air. EKG completed showing sinus bradycardia at 50 bpm with T wave inversion inferior leads II, III [address] CT head completed showing mild atrophy and negative for acute intracranial abnormality. Chest x-ray completed negative for acute cardiopulmonary process. Labs completed and reviewed. CBC showing macrocytosis with MCV of 105.2 and thrombocytopenia with platelet count of 121. Coagulation profile normal findings. BMP showing hypokalemia with potassium of 3.4 and hypocarbia with bicarb of 15. Initial lactate is 6.2. Magnesium low at 1.3. Liver profile showing hyperbilirubinemia with total bili of 2.1 and elevated liver enzymes with AST of 131 and ALT of 59. Ammonia was less than 9. Lipase normal findings at 171. Troponin 0.022. Urine drug screen positive for benzodiazepines. Patient admitted under our services with consultation to cardiology secondary to inferior lead EKG changes. Patient received aggressive IV fluid hydration res ulting in resolution of lactic acidosis with lactate decreasing from 6.2 down to 1.6. Physical exam: Patient seen and fully evaluated at the bedside this morning. Patient reports feeling tremulous and shaky and nauseous this morning. Vital signs reviewed and stable. General: Nontoxic, no distress and appears stated age. Derm: Skin warm and dry, normal coloration for ethnicity. Head: Atraumatic, normocephalic and symmetric. Eyes: EOMs intact, no lid lag, and anicteric sclera Mouth: no lip lesions, mucus membranes moist Cardiovascular: regular rate and rhythm with normal S1S2, no murmur, positive posterior tibial pulses bilaterally, and cap refill < 2 seconds. Lungs: Respirations even, regular, and unlabored on room air. Lungs CTA bilater ally, no rhonchi, no rales, no wheezing, and no accessory muscle usage. Abdominal: soft, nontender to palpation, no guarding, no appreciable organomegaly Ext: ROM intact. No gross muscle atrophy, no edema, no contractures Neuro: Speech clear, face symmetrical and CN II-XII grossly intact with no noted focal neuro deficits. Mild resting tremors noted. Psych: Alert and oriented to person, place, time, and situation. Appropriate and pleasant affect. Assessment and Plan of Care: Alcohol withdraw in active alcoholic Hyperbilirubinemia with transaminitis, possibly secondary to daily alcohol abuse versus daily medication regimen with Biktarvy for treatment of HIV Bicytopenia, likely secondary to daily alcohol abuse Hypokalemia Hypomagnesemia Lactic acidosis, possibly secondary to alcoholic ketoacidosis versus medication effects of Biktarvy resolved after aggressive IV fluid hydration -Continue monitoring of CIWA scores and patient to be medicated with Ativan 0.5 mg every 4 hours as needed for CIWA score of 4-5, Ativan 1 mg every 4 hours for CIWA score of 6-7, Ativan 2 mg every 3 hours CIWA score of 8-9, and Ativan 2 mg every 2 hours forr CIWA score of 10 or greater. Patient has received 8-1/2 mg of Ativan over the past 24 hours. Current CIWA is 12. -Continuous IV hydration. -Thiamine 100 mg daily, Multivitamin daily and Folate 1 mg daily -Seizure, fall, aspiration, and elopement precautions in place. -Urine drug screen positive for benzodiazepines -Potassium 3.4 orders placed for K-Dur 40 mEq p.o. x 1 dose. Magnesium 1.7 orders placed for mag sulfate 2 g IVPB. Continued close monitoring of electrolytes and replace as needed. -Telemetry monitoring. Abnormal EKG, inferior T wave inversion Hypertensive urgency, likely multifactorial ry to alcohol withdrawal along with untreated hypertension -Patient reports he was previously on antihypertensive medication but does not recall dose or medication and stopped taking because he no longer wanted to take. -Patient started on amlodipine 5 mg daily and we will continue to treat alcohol withdraw via CIWA protocol with symptom triggered medication management with benzodiazepines. -Cardiology consulted, increased amlodipine to 10 mg daily and started patient on lisinopril 20 mg daily. [employer] clearing from cardiac perspective. -Telemetry monitoring -Troponin 0.022 and repeat troponin also 0.022. -Lipid profile was unremarkable and triglycerides also normal findings at 97.00. -Cardiac diet -Order placed for aspirin 81 mg daily. -Echocardiogram ordered Reports of isolated episode of hematemesis -Reports blood streaked emesis but not vomiting of blood. -Hemoglobin stable at 17.4 with no further episodes of hematemesis. -Will monitor hemoglobin closely with repeat CBC. -Protonix 40 mg twice daily. HIV -Continue Biktarvy 50 200 25 mg tablets nightly. -Will add CD4 count Data and imaging reviewed: Morning labs reviewed. CBC showing continued macrocytosis with MCV of 105.3 and bicytopenia with WBC count of 3.0 and platelet count of 55. BMP showing hypokalemia with potassium of 3.4, hyperchloremia with chloride of 108. Magnesium low at 1.7. Liver profile showing continued hyperbilirubinemia with bilirubin of 1.5 and elevated AST of 86. Lipid profile unremarkable and triglycerides also normal findings at 97.00. Vital signs reviewed. Blood pressure 190/123, heart rate 46, respiratory rate 16, temp 98.4 F, and SpO2 of 97% on room air. CODE STATUS: Full code DVT prophylaxis: SCDs Anticipated discharge date: Clinical course to determine Anticipated discharge place: Clinical course to determine Patient was seen independently by Nurse Pracitioner. This document was prepared using [employer] dictation software. Please allow for errors in die cutting machine operator, while rare they do occur. I reviewed the documentation as provided by the BLUE above, who is the original author of this note. I agree with the documented assessment and plan, with the following changes: none Objective - Vital Signs Vital signs: Vital Signs Temp 98.3 F 09/26/23 07:04 Pulse 47 L 09/26/23 07:04 Resp 16 09/26/23 07:04 BP 172/99 09/26/23 07:04 Pulse Ox 96 09/26/23 07:04 FiO2 Intake & Output 09/25/23 09/26/23 09/26/23 18:59 06:59 18:59 Output Total 1400 Balance -1400 Weight 90.718 kg Output: Urine 1400 Other: Voiding Method Urinal Urinal # Voids 1 - Labs CBC & Chem 7: 09/26/23 10:09 09/26/23 10:09 Labs: Abnormal Lab Results - Last 24 Hours (Table) 09/25/23 09/25/23 Range/Units 06:44 06:44 WBC 2.88 L (4.50-10.00) X 10*3/uL RBC 4.07 L (4.40-5.60) X 10*6/uL MCV 105.9 H (80.0-97.0) FL MCH 36.6 H (27.0-32.0) pg Plt Count 83 L (140-440) X 10*3/uL Macrocytosis (manual) 2+ A Calcium 7.4 L (8.7-10.3) mg/dL Total Bilirubin 1.7 H (0.3-1.2) mg/dL AST 77 H (14-35) U/L Total Protein 5.8 L (6.2-8.2) g/dL Albumin 3.5 L (3.8-4.9) g/dL Albumin/Globulin Ratio 1.52 L (1.60-3.17) Ratio
--- NOTE | 2023-09-26 16:04 | P.PN ---
Subjective Progress Note Date: 09/26/23 History of present illness: This is a 43-year-old male with past medical history of hypertension, HIV, tob acco use, alcohol abuse, marijuana use. Patient is not currently taking blood pressure medications but states he was previously on lisinopril. He has not been to a PCP in a while. He denies any cardiac history and does not follow with a managed care provider. We have been asked to evaluate the patient for concerning EKG changes. Patient denies having any chest pain at this time. He presented with blood pressure of 199/119. Blood pressure is currently 196/112. Patient is status post IV fluids, potassium and magnesium replacement, Ativan and vitamin B1. He is seen today in [facility] Patient has an active alcohol withdrawal. EKG T wave inversions in lead III V1V3, no previous EKG to compare WBC 6.6, hemoglobin 17.4, platelet count 121. INR 1.1. Sodium 141, potassium 3.4, CO2 15, creatinine 0.73. Initial lactic acid 6.2 and repeat 1.6. M agnesium 1.3. Total bilirubin 2.1, AST 131, ALT 59, alkaline phosphatase 90. Troponin negative x 1. Ammonia level less than 9. Lipase 171. Urine drug screen positive for benzodiazepines Home cardiac medications: None Progress note 09/26/2023 Patient is doing well from cardiovascular standpoint. He is going through alcohol withdrawal. He is resting heart rate in the 50s to 60s, blood pressure is elevated in 150s systolic. He is currently on amlodipine 10, lisinopril 20. Denies any chest pain chest pressure. Still reports poor appetite. No shortness of breath. Intractable vomiting after alcohol withdrawal use. Chest pain initially. No chest pain chest pressure at this time. No swallowing difficulty to liquids. Poor appetite Physical examination: Gen: This is a 43-year-old male in no acute respiratory distress. VS: reviewed HEENT: Head is atraumatic, normocephalic. Pupils equal, round. Sclerae is anicteric. NECK: Supple. No JVD. LUNGS: Clear to auscultation. No wheezes or rhonchi. No intercostal retractions. HEART: Regular rate and rhythm. No murmur. ABDOMEN: Soft No tenderness. EXTREMITIES: No pedal edema. No calf tenderness. NEUROLOGICAL: Patient is awake, alert and oriented x3. Tremors noted. Assessment: Abnormal EKG most likely secondary to uncontrolled hypertension Alcohol withdrawal Vomiting and poor appetite. Lipase 171 HIV Tobacco use and marijuana use Plan: Await echocardiogram results. Continue aspirin, amlodipine 10, lisinopril 20. Continue to monitor under [facility] protocol. Manage alcohol withdrawals. Supportive management with IV fluids and thiamine, folate and other nutritional deficiencies as per primary team Objective - Vital Signs Vital signs: Vital Signs Temp 98.6 F 09/26/23 14:00 Pulse 64 09/26/23 14:00 Resp 17 09/26/23 14:00 BP 157/100 09/26/23 14:00 Pulse Ox 95 09/26/23 14:00 FiO2 Intake & Output 09/25/23 09/26/23 09/26/23 18:59 06:59 18:59 Output Total 1400 800 Balance -1400 -800 Weight 90.718 kg Output: Urine 1400 800 Other: Voiding Method Urinal Urinal # Voids 1 - Labs CBC & Chem 7: 09/26/23 10:09 09/26/23 10:09 Labs: Abnormal Lab Results - Last 24 Hours (Table) 09/26/23 09/26/23 Range/Units 10:09 10:09 WBC 3.0 L (3.8-10.6) k/uL MCV 105.3 H (80.0-100.0) fL MCH 36.0 H (25.0-35.0) pg Plt Count 55 L D (150-450) k/uL Potassium 3.4 L (3.5-5.1) mmol/L Chloride 108 H (98-107) mmol/L BUN 7 L (9-20) mg/dL Creatinine 0.60 L (0.66-1.25) mg/dL Calcium 7.7 L (8.4-10.2) mg/dL Total Bilirubin 1.5 H (0.2-1.3) mg/dL AST 86 H (17-59) U/L Total Protein 6.2 L (6.3-8.2) g/dL Albumin 3.3 L (3.5-5.0) g/dL
--- NOTE | 2023-09-26 16:33 | CA ---
Transthoracic Echo Report Name: Kaleb Brown Age: 43 Gender: M : 1980 Exam Date: 09/26/2023 08:28 Exam Location: [place] Echo Ht (in): 72 Wt (lb): 200 Ordering Physician: John Jacobs Attending/Referring Phys: Ironer Sock Patti Boo RDCS Procedure CPT: Indications: Evaluate structure and function Cardiac Hx: HTN Technical Quality: Good Contrast 1: Total Dose (mL): Contrast 2: Total Dose (mL): MEASUREMENTS (Male / Female) Normal Values 2D ECHO LV Diastolic Diameter PLAX 5.4 cm 4.2 - 5.9 / 3.9 - 5.3 cm LV Systolic Diameter PLAX 3.9 cm IVS Diastolic Thickness 1.2 cm 0.6 - 1.0 / 0.6 - 0.9 cm LVPW Diastolic Thickness 1.0 cm 0.6 - 1.0 / 0.6 - 0.9 cm LV Relative Wall Thickness 0.4 RV Internal Dim ED PLAX 3.4 cm LA Systolic Diameter LX 3.3 cm 3.0 - 4.0 / 2.7 - 3.8 cm LV Diastolic Volume MOD BP 93.6 cm??? 67 - 155 / 56 - 104 cm??? LV Systolic Volume MOD BP 54.9 cm??? 22 - 58 / 19 - 49 cm??? LV Ejection Fraction MOD BP 41.3 % >= 55 % LV Cardiac Index MOD BP 966.8 cm???/min???m??? LV Diastolic Volume MOD 4C 108.1 cm??? LV Systolic Volume MOD 4C 55.3 cm??? LV Ejection Fraction MOD 4C 48.8 % LV Cardiac Index MOD 4C 1319.9 cm???/min???m??? LV Diastolic Length 4C 8.3 cm LV Systolic Length 4C 7.5 cm LV Diastolic Volume MOD 2C 82.1 cm??? LV Systolic Volume MOD 2C 50.7 cm??? LV Ejection Fraction MOD 2C 38.2 % LV Cardiac Index MOD 2C 784.8 cm???/min???m??? LV Diastolic Length 2C 8.3 cm LV Systolic Length 2C 8.3 cm LA Volume 67.3 cm??? 18 - 58 / 22 - 52 cm??? LA Volume Index 31.1 cm???/m??? 16 - 28 cm???/m??? M-MODE Aortic Root Diameter MM 3.5 cm MV E Point Septal Separation 1.4 cm DOPPLER MV Area PHT 2.0 cm??? Mitral E Point Velocity 51.7 cm/s Mitral A Point Velocity 58.3 cm/s Mitral E to A Ratio 0.9 MV Deceleration Time 388.5 ms TR Peak Velocity 205.0 cm/s TR Peak Gradient 16.8 mmHg Right Ventricular Systolic Press 20.9 mmHg FINDINGS Left Ventricle Left ventricular ejection fraction is estimated at 40-45 %. Left ventricular cavity size normal. Mildly increased septal wall thickness. Moderately decreased left ventricular ejection fraction. Right Ventricle Mild right ventricular dilatation. Right ventricular systolic pressure within normal limits. Right Atrium Normal right atrial size. Left Atrium Mildly increased left atrial volume. Mildly increased left atrial area. Mitral Valve Structurally normal mitral valve. No evidence for mitral valve prolapse. No mitral stenosis. Trace mitral regurgitation. Aortic Valve Trileaflet aortic valve. No aortic valve stenosis or regurgitation. Tricuspid Valve Structurally normal tricuspid valve. Trace to mild tricuspid regurgitation. Pulmonic Valve Structurally normal pulmonic valve. Trace pulmonic regurgitation. Pericardium No pericardial effusion. Aorta Normal size aortic root and proximal ascending aorta. CONCLUSIONS Left ventricular ejection fraction is estimated at 40-45 %. Gloablly reduced LV systolic function No obvious regional wall motion abnormality No signficant valve pathology Previewed by: Dr Tomy Mcintosh (Electronically Signed) Final Date: 26 September 2023 16:32
[2023-09-27] MEDS ORDERED: LORazepam 2 MG/ML INJ IV PRN ×2 (11:13)
[2023-09-27 11:29] LABS: Magnesium 1.8 mg/dL (1.5-2.4)
--- NOTE | 2023-09-27 11:40 | P.PN ---
Subjective Progress Note Date: 09/27/23 Hospital course: Patient is a 43-year-old male with a past medical history of HIV, hypertension, colostomy with reversal, anxiety, depression, nicotine dependence, cannabinoid use disorder, and daily alcohol abuse. He presented to the emergency department on 09/24/2023 secondary to reports of alcohol withdraw and hematemesis with reports of blood streaked emesis. Patient underwent full evaluation in the emergency department. Vital signs upon arrival show patient to be in hypertensive urgency with blood pressure 199/119, heart rate 86, respiratory rate 18, temp 98.1 F, and SpO2 of 98% on room air. EKG completed showing sinus bradycardia at 50 bpm with T wave inversion inferior leads II, III and aVF. CT head completed showing mild atrophy and negative for acute intracranial abnormality. Chest x-ray completed negative for acute cardiopulmonary process. Labs completed and reviewed. CBC showing macrocytosis with MCV of 105.2 and thrombocytopenia with platelet count of 121. Coagulation profile normal findings. BMP showing hypokalemia with potassium of 3.4 and hypocarbia with bicarb of 15. Initial lactate is 6.2. Magnesium low at 1.3. Liver profile showing hyperbilirubinemia with total bili of 2.1 and elevated liver enzymes with AST of 131 and ALT of 59. Ammonia was less than 9. Lipase normal findings at 171. Troponin 0.022. Urine drug screen positive for benzodiazepines. Patient admitted under our services with consultation to cardiology secondary to inferior lead EKG changes. Patient received aggressive IV fluid hydration res ulting in resolution of lactic acidosis with lactate decreasing from 6.2 down to 1.6. Physical exam: Patient seen and fully evaluated at the bedside this morning. Vital signs reviewed and stable. General: Nontoxic, no distress and appears stated age. Derm: Skin warm and dry, normal coloration for ethnicity. Head: Atraumatic, normocephalic and symmetric. Eyes: EOMs intact, no lid lag, and anicteric sclera Mouth: no lip lesions, mucus membranes moist Cardiovascular: regular rate and rhythm with normal S1S2, no murmur, positive posterior tibial pulses bilaterally, and cap refill < 2 seconds. Lungs: Respirations even, regular, and unlabored on room air. Lungs CTA bilaterally, no rhonchi, no rales, no wheezing, and no accessory muscle usage. Abdominal: soft, nontender to palpation, no guarding, no appreciable organomegaly Ext: ROM intact. No gross muscle atrophy, no edema, no contractures Neuro: Speech clear, face symmetrical and CN II-XII grossly intact with no noted focal neuro deficits. Mild resting tremors noted. Psych: Alert and oriented to person, place, time, and situation. Appropriate and pleasant affect. Assessment and Plan of Care: Alcohol withdraw in active alcoholic Hyperbilirubinemia with transaminitis, possibly secondary to daily alcohol abuse versus daily medication regimen with Biktarvy for treatment of HIV Bicytopenia, likely secondary to daily alcohol abuse Hypokalemia Hypomagnesemia Lactic acidosis, possibly secondary to alcoholic ketoacidosis versus medication effects of Biktarvy resolved after aggressive IV fluid hydration -Continue monitoring of CIWA scores and patient to be medicated with Ativan 0.5 mg every 4 hours as needed for CIWA score of 4-5, Ativan 1 mg every 4 hours for CIWA score of 6-7, Ativan 2 mg every 3 hours CIWA score of 8-9, and Ativan 2 mg every 2 hours forr CIWA score of 10 or greater. Patient has received 9 mg of Ativan over the past 24 hours. Current CIWA is 8. -Continue thiamine 100 mg daily, Multivitamin daily and Folate 1 mg daily -Continue seizure, fall, aspiration, and elopement precautions. -Urine drug screen positive for benzodiazepines -Continued close monitoring of electrolytes and replace as needed. -Telemetry monitoring. Abnormal EKG, inferior T wave inversion Hypertensive urgency, likely multifactorial ry to alcohol withdrawal along with untreated hypertension -Patient reports he was previously on antihypertensive medication but does not recall dose or medication and stopped taking because he no longer wanted to take. -Patient started on amlodipine 5 mg daily and we will continue to treat alcohol withdraw via CIWA protocol with symptom triggered medication management with benzodiazepines. -Cardiology consulted, increased amlodipine to 10 mg daily and started patient on lisinopril 20 mg daily. -Telemetry monitoring -Troponin 0.022 and repeat troponin also 0.022. -Lipid profile was unremarkable and triglycerides also normal findings at 97.00. -Cardiac diet -Order placed for aspirin 81 mg daily. -Echocardiogram revealing a reduced left ventricular EF of 40 to 45% with globally reduced LV systolic function Reports of isolated episode of hematemesis -Reports blood streaked emesis but not vomiting of blood. -Hemoglobin stable at with no further episodes of hematemesis/blood streaked vomit since prior to admission. -Will monitor hemoglobin closely with repeat CBC. -Protonix 40 mg twice daily. HIV -Continue Biktarvy 50 200 25 mg tablets nightly. -CD4 count pending Data and imaging reviewed: Morning labs currently pending, will follow-up with results once available. Vital signs reviewed. Blood pressure elevated this morning at 180/105, heart rate 75, respiratory rate 20, temp 97.5 F, and SpO2 of 98% on room air. Patient given morning blood pressure medications at this time and blood pressure to be rechecked. Echocardiogram completed and results reviewed revealing a reduced left ventricular EF of 40 to 45% with globally reduced LV systolic function. CODE STATUS: Full code DVT prophylaxis: SCDs Anticipated discharge date: Clinical course to determine Anticipated discharge place: Clinical course to determine Patient was seen independently by Nurse Pracitioner. This document was prepared using [employer] dictation software. Please allow for errors in biodiesel plant superintendent, while rare they do occur. I reviewed the documentation as provided by the BLUE above, who is the original author of this note. I agree with the documented assessment and plan, with the following changes: none Objective - Vital Signs Vital signs: Vital Signs Temp 98.4 F 09/27/23 01:52 Pulse 59 L 09/27/23 01:52 Resp 14 09/27/23 01:52 BP 155/83 09/27/23 01:52 Pulse Ox 95 09/27/23 01:52 FiO2 Intake & Output 09/26/23 09/27/23 09/27/23 17:59 06:59 18:59 Output Total Balance Output: Urine Other: Voiding Method # Voids - Labs CBC & Chem 7: 09/27/23 06:36 09/27/23 06:36 Labs: Abnormal Lab Results - Last 24 Hours (Table) 09/26/23 09/26/23 Range/Units 10:09 10:09 WBC 3.0 L (3.8-10.6) k/uL MCV 105.3 H (80.0-100.0) fL MCH 36.0 H (25.0-35.0) pg Plt Count 55 L D (150-450) k/uL Potassium 3.4 L (3.5-5.1) mmol/L Chloride 108 H (98-107) mmol/L BUN 7 L (9-20) mg/dL Creatinine 0.60 L (0.66-1.25) mg/dL Calcium 7.7 L (8.4-10.2) mg/dL Total Bilirubin 1.5 H (0.2-1.3) mg/dL AST 86 H (17-59) U/L Total Protein 6.2 L (6.3-8.2) g/dL Albumin 3.3 L (3.5-5.0) g/dL
[2023-09-27 11:43] LABS: HCT 48.3 % (39.6-50.0); Immature Platelet Fraction 12.9 % (1.1-6.1); MCHC 35.2 g/dL (32.0-37.0); MCV 102.3 FL (80.0-97.0); Mean Platelet Volume 11.8 FL (9.5-12.2); NRBC Per 100 WBC 0 X 10*3/uL (0.00-0.01); Platelet Count 53 X 10*3/uL (140-440); RBC 4.72 X 10*6/uL (4.40-5.60); RDW 11.8 % (11.5-14.5); WBC 3.55 X 10*3/uL (4.50-10.00)
[2023-09-27 12:20] LABS: BUN/Creat Ratio 12.12 Ratio (12.00-20.00); Blood Urea Nitrogen 9.7 mg/dL (9.0-27.0); Carbon Dioxide 20.3 mmol/L (21.6-31.8); Chloride 104 mmol/L (96-109); Glucose 114 mg/dL (70-110); Potassium 3.3 mmol/L (3.5-5.5); Sodium 138 mmol/L (135-145)
[2023-09-27 12:21] LABS: ALT 49 U/L (10-49); AST 85 U/L (14-35); Albumin/Globulin Ratio 1.43 Ratio (1.60-3.17); Alkaline Phosphatase 69 U/L (41-126); Calcium 8.8 mg/dL (8.7-10.3); Globulin 2.8 g/dL (1.6-3.3); Total Bilirubin 1.3 mg/dL (0.3-1.2); Total Protein 6.8 g/dL (6.2-8.2)
[2023-09-27] MEDS: LORazepam 0.5 MG TAB PO PRN (14:15)
[2023-09-27] MEDS: POTASSIUM CHLORIDE ER 20 MEQ TAB.ER PO STA (15:35)
--- NOTE | 2023-09-27 17:48 | P.PN ---
Subjective Progress Note Date: 09/27/23 History of present illness: This is a 43-year-old male with past medical history of hypertension, HIV, tob acco use, alcohol abuse, marijuana use. Patient is not currently taking blood pressure medications but states he was previously on lisinopril. He has not been to a PCP in a while. He denies any cardiac history and does not follow with a helicopter officer. We have been asked to evaluate the patient for concerning EKG changes. Patient denies having any chest pain at this time. He presented with blood pressure of 199/119. Blood pressure is currently 196/112. Patient is status post IV fluids, potassium and magnesium replacement, Ativan and vitamin B1. He is seen today [facility] Patient has an active alcohol withdrawal. EKG T wave inversions in lead III V1V3, no previous EKG to compare WBC 6.6, hemoglobin 17.4, platelet count 121. INR 1.1. Sodium 141, potassium 3.4, CO2 15, creatinine 0.73. Initial lactic acid 6.2 and repeat 1.6. M agnesium 1.3. Total bilirubin 2.1, AST 131, ALT 59, alkaline phosphatase 90. Troponin negative x 1. Ammonia level less than 9. Lipase 171. Urine drug screen positive for benzodiazepines Home cardiac medications: None Progress note 09/26/2023 Patient is doing well from cardiovascular standpoint. He is going through alcohol withdrawal. He is resting heart rate in the 50s to 60s, blood pressure is elevated in 150s systolic. He is currently on amlodipine 10, lisinopril 20. Denies any chest pain chest pressure. Still reports poor appetite. No shortness of breath. Intractable vomiting after alcohol withdrawal use. Chest pain initially. No chest pain chest pressure at this time. No swallowing difficulty to liquids. Poor appetite 09/27/2023 Physical examination: Gen: This is a 43-year-old male in no acute respiratory distress. VS: reviewed HEENT: Head is atraumatic, normocephalic. Pupils equal, round. Sclerae is anicteric. NECK: Supple. No JVD. LUNGS: Clear to auscultation. No wheezes or rhonchi. No intercostal retractions. HEART: Regular rate and rhythm. No murmur. ABDOMEN: Soft No tenderness. EXTREMITIES: No pedal edema. No calf tenderness. NEUROLOGICAL: Patient is awake, alert and oriented x3. Tremors noted. 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 Lipase 171 HIV Tobacco use and marijuana use Plan: Continue aspirin, amlodipine 5mg, lisinopril 20. Cannot start beta-serge due to low resting heart rate. Patient would benefit from an outpatient ischemic evaluation either invasively or with a cardiac catheterization. Continue to monitor under CIWA protocol. Manage alcohol withdrawals. Patient was recommended to check his blood pressure at home. He was recommended not to use Viagra while he is using and hypertensive simultaneously at this point drop his blood pressure and might pass out Supportive management with IV fluids and thiamine, folate and other nutritional deficiencies as per primary team Smoking cessation, marijuana smoking cessation, alcohol cessation counseling provided Objective - Vital Signs Vital signs: Vital Signs Temp 98.0 F 09/27/23 13:14 Pulse 63 09/27/23 13:14 Resp 20 09/27/23 13:14 BP 137/84 09/27/23 13:14 Pulse Ox 95 09/27/23 13:14 FiO2 Intake & Output 09/26/23 09/27/23 09/27/23 17:59 06:59 18:59 Output Total Balance Output: Urine Other: Voiding Method Toilet Urinal # Voids - Labs CBC & Chem 7: 09/27/23 06:36 09/27/23 06:36 Labs: Abnormal Lab Results - Last 24 Hours (Table) 09/27/23 09/27/23 Range/Units 06:36 06:36 WBC 3.55 L (4.50-10.00) X 10*3/uL MCV 102.3 H (80.0-97.0) FL MCH 36.0 H (27.0-32.0) pg Plt Count 53 L (140-440) X 10*3/uL Immature Plt Fraction 12.9 H (1.1-6.1) % Potassium 3.3 L (3.5-5.5) mmol/L Carbon Dioxide 20.3 L (21.6-31.8) mmol/L Anion Gap 13.70 H (4.00-12.00) mmol/L Glucose 114 H (70-110) mg/dL Total Bilirubin 1.3 H (0.3-1.2) mg/dL AST 85 H (14-35) U/L Albumin/Globulin Ratio 1.43 L (1.60-3.17) Ratio
[2023-09-27] MEDS: LORazepam 1 MG TAB PO PRN (21:02)
[2023-09-27] MEDS: Bictegrav/Emtricit/Tenofov Ala [Biktarvy 50-200-25 Mg Tablet] 1 EACH T PO SCH (21:02)
--- NOTE | 2023-09-28 09:46 | P.PN ---
Subjective Progress Note Date: 09/28/23 Principal diagnosis: Hypertension The patient is a 43-year-old gentleman with a past medical history significant for history of smoking and excessive alcohol use and history of HIV who was admitted to the hospital with nausea and vomiting and poor appetite. An EKG was performed and came in to be abnormal and we consulted to see the patient for that reason. Troponin was unremarkable. The EKG was concerning for hypertensive heart disease with differential diagnosis of ischemic heart disease. An echo revealed cardiomyopathy with a EF around 40% with global hypokinesia. September 28, 2023 The patient was seen and evaluated this morning. He is asymptomatic. The pressure remains elevated and spite of being on lisinopril and amlodipine. I am going to add hydrochlorothiazide to the current medical regimen. Beside that and going to obtain a stress test to rule out severe CAD and the patient stated that he is able to walk on the treadmill. With that being said and with abnormal EKG and going to perform a stress echocardiogram. The physical examination is remarkable for regular rhythm with a soft systolic murmur at the right upper sternal border with a clear breathing sounds bilaterally and no carotid bruit and no edema was noted Assessment Nausea and vomiting Hypertension not well-controlled Nonischemic cardiomyopathy HIV History of smoking History of alcohol use Plan Acute coronary event was ruled out Rule out severe CAD by obtaining stress test Follow-up with the patient Objective - Vital Signs Vital signs: Vital Signs Temp 97.9 F 09/28/23 07:30 Pulse 61 09/28/23 07:30 Resp 19 09/28/23 07:30 BP 158/99 09/28/23 07:30 Pulse Ox 95 09/28/23 07:30 FiO2 Intake & Output 09/27/23 09/28/23 09/28/23 18:59 06:59 18:59 Other: Voiding Method Toilet Toilet Urinal # Voids 3 - Labs CBC & Chem 7: 09/27/23 06:36 09/27/23 06:36 Labs: Abnormal Lab Results - Last 24 Hours (Table) 09/25/23 09/27/23 09/27/23 Range/Units 06:44 06:36 06:36 WBC 3.55 L (4.50-10.00) X 10*3/uL MCV 102.3 H (80.0-97.0) FL MCH 36.0 H (27.0-32.0) pg Plt Count 53 L (140-440) X 10*3/uL Neutrophils # (Manual) 1.15 L (1.80-7.70) X 10*3/uL Immature Plt Fraction 12.9 H (1.1-6.1) % Potassium 3.3 L (3.5-5.5) mmol/L Carbon Dioxide 20.3 L (21.6-31.8) mmol/L Anion Gap 13.70 H (4.00-12.00) mmol/L Glucose 114 H (70-110) mg/dL Total Bilirubin 1.3 H (0.3-1.2) mg/dL AST 85 H (14-35) U/L Albumin/Globulin Ratio 1.43 L (1.60-3.17) Ratio
[2023-09-28] MEDS: amLODIPine 5 MG TAB PO SCH (10:20)
[2023-09-28 10:24] LABS: T4/T8 Ratio (CD4:CD8) 0.2 (1.0-3.7)
--- NOTE | 2023-09-28 13:29 | CA ---
Stress Echo Report Kaleb Brown Age: 43 Gender: M : 1980 Exam Date: 09/28/2023 10:50 Exam Location: [place] Echo Ht (in): 72 Wt (lb): 200 Ordering Physician: Justin Mcneal MD ([id number]) Referring Physician: RODRÍGUEZ, Poultry Barn Manager: Kaleb Vo Technologist Procedure CPT: Indication: cm ICD-9 Codes: Rhythm: Patient History: Hypertension and alcohol withdraw Cardiac Medications: Medications in past 24 hours: Contrast: Stress Results Protocol: Gamaliel Total dose(mL): Exercise Duration (min:sec): 6:[address] Depression (mm): Angina Score: Stark Score: METS: 7.9 Resting HR: 62 Resting BP: 146 / 94 Peak HR: 160 Peak BP: 204 / 115 Max Predicted HR: 175 91 % Max Predicted HR Target HR: 149 Double Product: [id number] Stress Summary: BP Response: Reason for Termination: Reached target heart rate or work-load Cardiac Symptoms: No symptoms ECG Analysis Resting ECG: Stress ECG: Arrhythmia: Echo Analysis Resting Echo: Peak Echo Analysis: MEASUREMENTS (Male/Female) Normal Values CONCLUSIONS Good exercise tolerance. The patient exercised for 6 minutes and 37 seconds on a Gamaliel protocol Abnormal baseline echo with cardiomyopathy. There was good augmentation in the LV with exercise. No evidence of any regional wall motion abnormalities concerning for severe underlying coronary artery disease Dr. Justin Mcneal MD (Electronically Signed) Final Date: 28 September 2023 13:28
[2023-09-28 14:40] VITALS: BP 125/84; PULSE 70; RESP 18; TEMP 98
--- NOTE | 2023-09-28 15:26 | P.DS ---
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 Hypertensive urgency, likely multifactorial r/t to alcohol withdrawal along with untreated hypertension. Reports of isolated episode of hematemesis. Hemoglobin stable at 17.0 with no further episodes of hematemesis/blood streaked vomit since prior to admission. HIV. Continue Biktarvy 50 200 25 mg tablets nightly. Absolute CD4 count is less than 200 resulting at 139. Patient started on PCP prophylaxis with Bactrim Ss 400-80 mg tablets daily. Patient to follow-up outpatient with infectious disease. Hospital Course Patient is a 43-year-old male with a past medical history of HIV, hypertension, colostomy with reversal, anxiety, depression, nicotine dependence, cannabinoid use disorder, and daily alcohol abuse. He presented to the emergency department on 09/24/2023 secondary to reports of alcohol withdraw and hematemesis with reports of blood streaked emesis. Patient underwent full evaluation in the emergency department. Vital signs upon arrival show patient to be in hypertensive urgency with blood pressure 199/119, heart rate 86, respiratory rate 18, temp 98.1 F, and SpO2 of 98% on room air. EKG completed showing sinus bradycardia at 50 bpm with T wave inversion inferior leads II, III and aVF. CT head completed showing mild atrophy and negative for acute intracranial abnormality. Chest x-ray completed negative for acute cardiopulmonary process. Labs completed and reviewed. CBC showing macrocytosis with MCV of 105.2 and thrombocytopenia with platelet count of 121. Coagulation profile normal findings. BMP showing hypokalemia with potassium of 3.4 and hypocarbia with bicarb of 15. Initial lactate is 6.2. Magnesium low at 1.3. Liver profile showing hyperbilirubinemia with total bili of 2.1 and elevated liver enzymes with AST of 131 and ALT of 59. Ammonia was less than 9. Lipase normal findings at 171. Troponin 0.022. Urine drug screen positive for benzodiazepines. Patient admitted under our services with consultation to cardiology secondary to inferior lead EKG changes. Patient received aggressive IV fluid hydration resulting in resolution of lactic acidosis with lactate decreasing from 6.2 down to 1.6. Echocardiogram revealing a reduced left ventricular EF of 40 to 45% with globally reduced LV systolic function. Patient was evaluated by car salesperson and multiple medication changes were made. Patient started on hydrochlorothiazide 25 mg daily, lisinopril 20 mg daily, amlodipine 5 mg daily, and aspirin 81 mg daily. He was taken in for stress test by car salesperson, car salesperson clearing patient from cardiac standpoint for discharge recommending outpatient follow-up in their office in 1 week. Absolute CD4 count is less than 200 resulting at 139. Patient started on PCP prophylaxis with Bactrim Ss 400-80 mg tablets daily in addition to continuation of Biktarvy 50 200 25 mg tablets nightly. Patient is medically stable for discharge at this time, patient to follow-up outpatient with PCP, cardiology, and infectious disease. Patient strongly educated on the recommendations of avoidance of any and all alcohol use. Physical exam: Vital signs reviewed and stable. General: Nontoxic, no distress and appears stated age. Derm: Skin warm and dry, normal coloration for ethnicity. Head: Atraumatic, normocephalic and symmetric. Eyes: EOMs intact, no lid lag, and anicteric sclera Mouth: no lip lesions, mucus membranes moist Cardiovascular: regular rate and rhythm with normal S1S2, no murmur, positive posterior tibial pulses bilaterally, and cap refill < 2 seconds. Lungs: Respirations even, regular, and unlabored on room air. Lungs CTA bilaterally, no rhonchi, no rales, no wheezing, and no accessory muscle usage. Abdominal: soft, nontender to palpation, no guarding, no appreciable organomegaly Ext: ROM intact. No gross muscle atrophy, no edema, no contractures Neuro: Speech clear, face symmetrical and CN II-XII grossly intact with no noted focal neuro deficits. Mild resting tremors noted. Psych: Alert and oriented to person, place, time, and situation. Appropriate and pleasant affect. A total of 38 minutes of time were spent preparing this complex discharge summary. Pt was discharged on 09/28/2023 at 3:02 PM. Patient was seen independently by Nurse Practitioner. This document was prepared using [email or web address] dictation software. Please allow for errors in dough mixing machine operator while rare they do occur. I reviewed the documentation as provided by the BLUE above, who is the original author of this note. I agree with the documented assessment and plan, with the following changes: none Patient Condition at Discharge: Stable Plan - Discharge Summary Discharge Rx Participant: No New Discharge Prescriptions: New hydroCHLOROthiazide [Hydrodiuril] 25 mg PO DAILY 90 Days #90 tab lisinopriL [Zestril] 20 mg PO DAILY 90 Days #90 tab Sulfamethox-Tmp 400-80Mg [Bactrim SS 400-80 mg] 1 each PO DAILY 30 Days #30 tab Bictegrav/Emtricit/Tenofov Ala [Biktarvy 50-200-25 Mg Tablet] 1 tab PO HS 30 Days #30 Aspirin 81 mg PO DAILY 90 Days #90 tab amLODIPine [Norvasc] 5 mg PO DAILY 90 Days #90 tab Continue Bictegrav/Emtricit/Tenofov Ala [Biktarvy 50-200-25 mg Tablet] 1 tab PO DAILY Discharge Medication List Bictegrav/Emtricit/Tenofov Ala [Biktarvy 50-200-25 mg Tablet] 1 tab PO DAILY 05/28/20 [History] Aspirin 81 mg PO DAILY 90 Days #90 tab 09/28/23 [Rx] Bictegrav/Emtricit/Tenofov Ala [Biktarvy 50-200-25 Mg Tablet] 1 tab PO HS 30 Days #30 09/28/23 [Rx] Sulfamethox-Tmp 400-80Mg [Bactrim SS 400-80 mg] 1 each PO DAILY 30 Days #30 tab 09/28/23 [Rx] amLODIPine [Norvasc] 5 mg PO DAILY 90 Days #90 tab 09/28/23 [Rx] hydroCHLOROthiazide [Hydrodiuril] 25 mg PO DAILY 90 Days #90 tab 09/28/23 [Rx] lisinopriL [Zestril] 20 mg PO DAILY 90 Days #90 tab 09/28/23 [Rx] Follow up Appointment(s)/Referral(s): Justin Mcneal MD [STAFF PHYSICIAN] - 1 Week (Office is not answering at time of discharge. Please call for follow-up appointment.) Gladys Francisco MD [REFERRING] - 1-2 Days Shahzad Brannon MD [STAFF PHYSICIAN] - 10/05/23 3:15 pm (Your CD4 count is less than 200, it is of upmost importance for you to follow up with infectious disease physician, Dr. Brannon in his office within the next two weeks.) Patient Instructions/Handouts: Abuse of Alcohol (DC), Alcohol Withdrawal (DC), Hypertension (DC) Activity/Diet/Wound Care/Special Instructions: Activity: As tolerated. Take breaks as needed. Diet: Heart healthy and carb consistent diet. Avoid salts, or foods with hidden salts such as canned or boxed foods and frozen dinners. Extra salt makes your heart work harder and traps the fluid in your body for longer. Special Instructions: Take all of your medications as directed and remember to keep all of your doctor's appointments and follow-up as needed. Strongly recommend avoiding any and all alcohol use. Thank you for allowing us to participate in your care, it was truly a pleasure having you for our patient!!! Your CD4 count is less than 200, it is of upmost importance for you to follow up with infectious disease physician, Dr. Brannon in his office within the next two weeks as scheduled. Discharge/Stand Alone Forms: AA Meetings [facility], AA Meetings [place] Discharge Disposition: HOME SELF-CARE
[2023-09-28] MEDS: SULFAMETHOX-TMP 400-80MG 1 EACH TAB PO SCH (16:18)
[2023-09-29] MEDS ORDERED: hydroCHLOROthiazide 25 MG TAB PO SCH (09:00)
== END 2023-09-28 16:47 | disposition home or self-care (01) | DRG 775 ==
LOC: EC 21:52 → 4SSUR 09-25 03:14 → OBSVTOIN 09-25 03:15 → 4SSUR 09-25 11:21
PROVIDERS: ADMIT Internal Medicine; ATTEND Internal Medicine
DX: F10.239 Alcohol dependence with withdrawal, unspecified (principal); Z21 Asymptomatic human immunodeficiency virus [HIV] infection status; E83.42 Hypomagnesemia; E87.6 Hypokalemia; F17.200 Nicotine dependence, unspecified, uncomplicated; F32.A Depression, unspecified; F41.9 Anxiety disorder, unspecified; I10 Essential (primary) hypertension; I42.8 Other cardiomyopathies; I16.0 Hypertensive urgency; D69.59 Other secondary thrombocytopenia; Z79.82 Long term (current) use of aspirin; Z79.899 Other long term (current) drug therapy; Z80.0 Family history of malignant neoplasm of digestive organs
CPT/HCPCS: 36415; 80053; 80061; 80306; 82140; 83605; 83690; 83735; 84484; 85025; 85027; 85610; 85730; 86360; 86850; 86900; 86901; 93005; 93306; 93351; 96361; 96365; 96366; 96367; 96372; 96375; 96376; 99285

== ENCOUNTER 2024-02-29 07:29 | Emergency (ER) | payer OTHER ==
[~2024-02-29 07:29] MED LIST: LORazepam 2 MG/ML INJ ONE
[2024-02-29] MEDS ORDERED: LORazepam 1 MG TAB ONE (09:31)
== END 2024-02-29 10:47 | disposition home or self-care (01) ==
LOC: EC 07:29
DX: F43.21 Adjustment disorder with depressed mood (principal)
CPT/HCPCS: 82075; 96372; 99283

== ENCOUNTER 2024-03-03 14:00 | Observation (INO) | payer OTHER ==
[2024-03-03] MEDS ORDERED: LORazepam 2 MG/ML INJ ONE ×2 (21:03→23:16)
[2024-03-03] MEDS ORDERED: SODIUM CHLORIDE 0.9% 1,000 ML BAG ONE (23:59)
[2024-03-04] MEDS ORDERED: LORazepam 2 MG/ML INJ ONE ×3 (02:45→20:38)
[2024-03-04] MEDS ORDERED: lisinopriL 20 MG TAB ONE (10:22)
[2024-03-04] MEDS ORDERED: cloNIDine HCL 0.1 MG TAB ONE (20:38)
[2024-03-05] MEDS ORDERED: LORazepam 2 MG/ML INJ ONE ×3 (05:29→23:50)
[2024-03-05] MEDS ORDERED: HEPARIN SODIUM,PORCINE 5,000 UNIT/ML 1 ML VIAL ONE (08:27)
[2024-03-05] MEDS ORDERED: cloNIDine HCL 0.1 MG TAB ONE ×3 (08:27→21:08)
[2024-03-05] MEDS ORDERED: PANTOPRAZOLE 40 MG TABLET PO ONE (08:27)
[2024-03-05] MEDS ORDERED: lisinopriL 20 MG TAB ONE (08:28)
[2024-03-05] MEDS ORDERED: ACETAMINOPHEN TAB 325 MG TAB ONE (15:25)
[2024-03-06] MEDS ORDERED: cloNIDine HCL 0.1 MG TAB ONE ×2 (01:13→09:58)
[2024-03-06] MEDS ORDERED: MULTIVITAMINS, THERA 1 EACH TAB ONE (09:56)
[2024-03-06] MEDS ORDERED: lisinopriL 20 MG TAB ONE (09:56)
[2024-03-06] MEDS ORDERED: PANTOPRAZOLE 40 MG TABLET PO ONE (09:56)
[2024-03-06] MEDS ORDERED: HEPARIN SODIUM,PORCINE 5,000 UNIT/ML 1 ML VIAL ONE ×2 (09:56→20:32)
[2024-03-06] MEDS ORDERED: LORazepam 2 MG/ML INJ ONE (10:33)
[2024-03-06] MEDS ORDERED: SODIUM CHLORIDE 0.9% 1,000 ML BAG ONE (10:43)
[2024-03-07] MEDS ORDERED: cloNIDine HCL 0.1 MG TAB ONE ×3 (00:14→09:22)
[2024-03-07] MEDS ORDERED: PANTOPRAZOLE 40 MG TABLET PO ONE (09:23)
[2024-03-07] MEDS ORDERED: lisinopriL 20 MG TAB ONE (09:24)
[2024-03-07] MEDS ORDERED: HEPARIN SODIUM,PORCINE 5,000 UNIT/ML 1 ML VIAL ONE (09:24)
[2024-03-07] MEDS ORDERED: MULTIVITAMINS, THERA 1 EACH TAB ONE (09:25)
== END 2024-03-07 12:00 | disposition home or self-care (01) ==
LOC: INTOOBSV 14:00 → 6NMEDSUR 14:00 → UNDODISIN 03-07 17:00
PROVIDERS: ADMIT Internal Medicine; ATTEND Internal Medicine
DX: F10.231 Alcohol dependence with withdrawal delirium (principal); R45.851 Suicidal ideations; I10 Essential (primary) hypertension; Z21 Asymptomatic human immunodeficiency virus [HIV] infection status; Y90.8 Blood alcohol level of 240 mg/100 ml or more; F32.A Depression, unspecified; F34.1 Dysthymic disorder; F17.210 Nicotine dependence, cigarettes, uncomplicated; Z79.899 Other long term (current) drug therapy; Z91.51 Personal history of suicidal behavior
CPT/HCPCS: 96360; 99285